=== PATIENT | female | born 2000 | race Caucasian/White ===

== ENCOUNTER → 2020-05-06 12:02 | Outpatient (BNVA) | payer OTHER, SELFPAY | PROVIDERS: PCP Pediatrics; Visit Provider Advanced Practice Midwife ==

== ENCOUNTER 2020-05-22 13:43 | Outpatient (REF) | payer OTHER, SELFPAY ==
[2020-05-23 10:16] LABS: BV Int Neg Control Negative (Negative); BV Int Pos Control Positive (Positive)
== END 2020-05-22 13:44 | disposition home or self-care (01) ==
LOC: HO.LAB 13:43
PROVIDERS: PCP Pediatrics; Visit Provider Advanced Practice Midwife
DX: Z30.432 Encounter for removal of intrauterine contraceptive device (principal); Z88.8 Allergy status to other drugs, medicaments and biological substances
CPT/HCPCS: 58301; 87480; 87510; 87660

== ENCOUNTER → 2020-12-02 11:51 | Outpatient (BNVA) | payer OTHER, SELFPAY | PROVIDERS: PCP Pediatrics; Visit Provider Advanced Practice Midwife ==

== ENCOUNTER 2021-01-07 09:33 | Outpatient (REF) | payer OTHER, SELFPAY ==
[2021-01-07 16:38] LABS: CT PCR NOT DETECTED (Not Detect.); NG PCR NOT DETECTED (Not Detect.)
== END 2021-01-07 09:34 | disposition home or self-care (01) ==
LOC: HO.LAB 09:33
PROVIDERS: PCP Pediatrics; Visit Provider Advanced Practice Midwife
DX: Z01.419 Encounter for gynecological examination (general) (routine) without abnormal findings (principal); Z20.2 Contact with and (suspected) exposure to infections with a predominantly sexual mode of transmission
CPT/HCPCS: 87491; 87591; 88142

== ENCOUNTER → 2022-03-23 08:15 | Outpatient (BNVA) | payer OTHER, SELFPAY | PROVIDERS: PCP Hospitalist; Visit Provider Nurse Practitioner Family | DX: Z13.89 Encounter for screening for other disorder (principal) ==

== ENCOUNTER 2022-04-20 08:20 | Outpatient (REF) | payer OTHER, SELFPAY ==
[2022-04-20 18:21] LABS: CT PCR NOT DETECTED (Not Detect.); NG PCR NOT DETECTED (Not Detect.)
== END 2022-04-20 08:21 | disposition home or self-care (01) ==
LOC: HO.LNP 08:20
PROVIDERS: PCP Hospitalist; Visit Provider Advanced Practice Midwife
DX: Z01.419 Encounter for gynecological examination (general) (routine) without abnormal findings (principal); Z11.3 Encounter for screening for infections with a predominantly sexual mode of transmission; R10.2 Pelvic and perineal pain
CPT/HCPCS: 0353U

== ENCOUNTER 2022-04-22 19:35 | Outpatient (REF) | payer OTHER, SELFPAY ==
--- NOTE | ~2022-04-22 | MR_ITS ---
EXAMINATION: MR CERVICAL SPINE WITHOUT CONTRAST (REDUCED) CLINICAL INFORMATION: Chiari malformation. Cine flow study. COMPARISON: Brain MRI 01/01/2022. TECHNIQUE: Multiplanar MR imaging of the cervical spine was performed using a reduced protocol specifically tailored to evaluate canal patency and CSF flow. FINDINGS: Alignment is normal. Vertebral heights are preserved. There is disc desiccation at multiple levels without substantial loss of intervertebral disc height. Grossly no evidence of canal compromise. Again there is cerebellar tonsillar ectopia with the tips of the cerebellar tonsils extending as far as 0.6 cm below the foramen magnum. No cervicomedullary compression or abnormal intramedullary signal changes. No identifiable syrinx. Cardiac gated dynamic sequences demonstrate preservation of biphasic flow of cerebrospinal fluid at the cervicomedullary junction. MR/MR cervical spine wo con IMPRESSION: Cerebellar tonsillar ectopia with the tips of the cerebellar tonsils extending as far as 0.6 cm below the foramen magnum. No cervicomedullary compression or abnormal intramedullary signal changes. No identifiable syrinx. Cardiac gated dynamic sequences demonstrate preservation of biphasic flow of cerebrospinal fluid at the cervicomedullary junction.
== END 2022-04-22 19:36 | disposition home or self-care (01) ==
LOC: HO.MRI 19:35
PROVIDERS: PCP Hospitalist; Visit Provider Neurological Surgery
DX: Q07.00 Arnold-Chiari syndrome without spina bifida or hydrocephalus (principal)
CPT/HCPCS: 72141

== ENCOUNTER 2022-05-05 15:37 | Outpatient (REF) | payer OTHER, SELFPAY ==
--- NOTE | ~2022-05-05 | US_ITS ---
EXAMINATION: US PELVIS AND TRANSVAGINAL CLINICAL INFORMATION: Pelvic pain. COMPARISON: 02/16/2018 TECHNIQUE: Ultrasound of the pelvis is performed using both transabdominal and transvaginal transducers along with Doppler. Transvaginal imaging is performed due to inadequate visualization transabdominally. FINDINGS: UTERUS: The uterus is anteverted and measures 7.2 x 2.6 x 2.8 cm. The double wall endometrial thickness is 5 mm. The uterus is smooth in contour and has normal myometrial echogenicity. No visible fibroid. ADNEXA: Both ovaries are visualized. There is normal color flow to the adnexa. There is no ovarian torsion. There is no pelvic ascites or fluid collection. Right ovary measures 3.3 x 1.7 x 2.1 for a volume of 6.2 mL which includes multiple normal follicular cysts. Left ovary measures 3.1 x 1.5 x 2.2 cm for a volume of 5.4 mL which includes multiple normal follicular cysts. US/US pelvic and transvaginal IMPRESSION: Normal exam.
== END 2022-05-05 15:38 | disposition home or self-care (01) ==
LOC: HO.US 15:37
PROVIDERS: PCP Hospitalist; Visit Provider Advanced Practice Midwife
DX: R10.2 Pelvic and perineal pain (principal)
CPT/HCPCS: 76830; 76856

== ENCOUNTER → 2022-05-25 09:54 | Outpatient (BNVA) | payer OTHER, SELFPAY | PROVIDERS: PCP Hospitalist; Visit Provider Advanced Practice Midwife | DX: Z13.89 Encounter for screening for other disorder (principal) ==

== ENCOUNTER → 2022-06-10 15:19 | Outpatient (BNVA) | payer OTHER, SELFPAY | PROVIDERS: PCP Hospitalist; Visit Provider Nurse Practitioner Family | DX: Z13.89 Encounter for screening for other disorder (principal) ==

== ENCOUNTER → 2022-07-01 13:05 | Outpatient (REF) | payer OTHER, SELFPAY | LOC: HO.SL 13:05 | PROVIDERS: PCP Hospitalist; Visit Provider Nurse Practitioner Family | DX: R06.83 Snoring (principal); G47.19 Other hypersomnia; G47.9 Sleep disorder, unspecified | CPT/HCPCS: 95806 ==

== ENCOUNTER 2022-09-10 11:06 | Outpatient (AMB) | payer OTHER, SELFPAY ==
[2022-09-10 11:09] VITALS: BP 118/90; PULSE 96; O2SAT 99; BMI 37.6
--- NOTE | 2022-09-10 11:09 | MHC.OFFVIS ---
Intake Vital Signs 09/10/22 11:09 Height 5 ft Weight 192 lb 8 oz BMI 37.6 BP 118/90 H Blood Pressure Location Lt brachial Position Sitting Pulse 96 Pulse Source Pulse Oximeter Pulse Oximetry (%) 99 Oxygen Delivery Method Room Air Intake Visit Reasons: 3 mo f/u for Migraines Intake Note: Pt presents as a 3 month f/u for migraines. I feel like everything is kind of the same. 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 Allergies amitriptyline [AMITRIPTYLINE] Adverse Reaction (Severe, Verified 09/10/22 11:13) SUICIDAL IDEATION, suicidal Medication List - Last Reconciled 09/10/22 by FEDE Russell aspirin 325 mg PO DAILY bupropion HCl 450 mg PO DAILY etonogestrel (Nexplanon) subdermal lamotrigine 200 mg PO DAILY magnesium 250 mg PO DAILY riboflavin (vitamin B2) 400 mg (4 x 100 mg) PO DAILY 30 days sumatriptan succinate 50 - 100 mg orally at onset of headache, may repeat in 2 hrs PRN; max 2 tabs per day or 4 tabs/week (may take with Ibuprofen) 30 days HPI HPI Comments History of Present Illness Details 21-yr-old female presents for f/u visit. Pt denies any significant interval medical changes. Pt reports that she continues to have daily headache, but not as many severe headaches. She has stopped Propranolol- nightmares have resolved, her weight is down as well. Her HST did not show evidence for sleep apnea- showed AHI < 1/hr and O2 lino 90%. 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 [employer] Sexual orientation: Straight/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 Gender identity: Female Cognitive needs: No Hearing needs: No Vision needs: No Female Reproductive History Menstrual Age of Menarche: 9 Review of Systems Const All systems reviewed & are unremarkable except as noted in HPI and below Physical Exam Vital Signs: Last Vital Signs Pulse 96 09/10/22 11:09 BP 118/90 H 09/10/22 11:09 Pulse Ox 99 09/10/22 11:09 Oxygen Delivery Method Room Air 09/10/22 11:09 BMI result Body Mass Index 37.6 Const General: cooperative and no acute distress Orientation/consciousness: patient oriented x3 HEENT Head: Yes normocephalic Resp Effort & Inspection: normal respiratory effort and able to speak in complete sentences Neuro General: patient oriented x3, gait normal and CN's II-XI intact bilaterally Cognition (Neuro): normal cognition Motor exam (neuro): 5/5 motor strength present throughout Psych Appearance: grossly normal Mental Status: mental status grossly normal Speech and movement: Normal speech and movement present Affect: normal affect Attitude: cooperative Thought process: Normal thought process present Thought content: Normal thought content present Insight: Good insight present (Psych) Judgement: Good judgement present (Psych) Assessment & Plan Assessment & Plan (1) Migraine without aura: Code(s): G43.009 - Migraine without aura, not intractable, without status migrainosus (2) Excessive daytime sleepiness: Code(s): G47.19 - Other hypersomnia (3) Cerebellar tonsillar ectopia: Code(s): 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 Plan HST no evidence of sleep apnea- if sleep worsens consider in-lab PSG. ? For acute headache treatment: Sumatriptan 50-100mg prn. May take w/ OTC Ibuprofen or Naproxen. ? For headache prevention medication: Continue Riboflavin 400mg qam Trial Aimovig 140mg sc q month- pt will want injection training when available. Previous preventive migraine trials: Amitriptyline- caused SI. Topiramate- ineffective. Propranolol- nightmares and weight gain. Magnesium. Future considerations: Resuming Botox. ?Follow-up in 3 months or sooner w/ worsening s/s. Medications: New erenumab-aooe (Aimovig Autoinjector) 140 mg subcut ONCE 1 mL 6RF 30 days Coding Level of Care Code Est Pt Level 4 (14852) Diagnoses Migraine without aura G43.009 Excessive daytime sleepiness G47.19 Cerebellar tonsillar ectopia Q04.8
== END 2022-09-10 11:46 | disposition home or self-care (01) ==
PROVIDERS: Visit Provider Nurse Practitioner Family
DX: G43.009 Migraine without aura, not intractable, without status migrainosus (principal); G47.19 Other hypersomnia; Q04.8 Other specified congenital malformations of brain
CPT/HCPCS: 99214

== ENCOUNTER → 2022-09-10 11:06 | Outpatient (BNVA) | payer OTHER, SELFPAY | PROVIDERS: Visit Provider Nurse Practitioner Family ==

== ENCOUNTER 2022-12-24 11:04 | Outpatient (AMB) | payer OTHER, SELFPAY ==
--- NOTE | 2022-12-24 11:04 | MHC.OFFVIS ---
Intake Vital Signs 12/24/22 11:05 Height 5 ft Weight 180 lb 8 oz BMI 35.2 BP 108/82 Blood Pressure Location Lt brachial Position Sitting Pulse 93 Pulse Source Pulse Oximeter Pulse Oximetry (%) 99 Oxygen Delivery Method Room Air Intake Visit Reasons: 3m follow up Migraines-Confirmed Intake Note: Patient present today for 3 month follow to Migraines. No change since last visit. 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 Accompanied by: Self / Same As Patient Allergies amitriptyline [AMITRIPTYLINE] Adverse Reaction (Severe, Verified 12/24/22 11:10) SUICIDAL IDEATION, suicidal Medication List - Last Reconciled 12/24/22 by FEDE Russell aspirin 325 mg PO DAILY bupropion HCl 450 mg PO DAILY erenumab-aooe (Aimovig Autoinjector) 140 mg subcut ONCE 30 days etonogestrel (Nexplanon) subdermal lamotrigine 150 mg PO DAILY magnesium 250 mg PO DAILY riboflavin (vitamin B2) 400 mg (4 x 100 mg) PO DAILY 30 days sumatriptan succinate 50 - 100 mg orally at onset of headache, may repeat in 2 hrs PRN; max 2 tabs per day or 4 tabs/week (may take with Ibuprofen) 30 days HPI HPI Comments History of Present Illness Details 22-yr-old female presents for f/u visit. Pt denies any significant interval medical changes. Pt states she continues to have a near daily headache/migraine. She continues to have visual snow episodes- not affected by weaning of Lamotrigine (weaning off as her osych team does not feel she actually has bipolar d/o). She often has neck tightness a/w worsening migraine Sumatriptan is effective. She never started or picked up Aimovig as copay was > $100/month. 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 [employer] Sexual orientation: Straight/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 Gender identity: Female Cognitive needs: No Hearing needs: No Vision needs: No Female Reproductive History Menstrual Age of Menarche: 9 Review of Systems Const All systems reviewed & are unremarkable except as noted in HPI and below Physical Exam Vital Signs: Last Vital Signs Pulse 93 12/24/22 11:05 BP 108/82 12/24/22 11:05 Pulse Ox 99 12/24/22 11:05 Oxygen Delivery Method Room Air 12/24/22 11:05 BMI result Body Mass Index 35.2 Const General: cooperative and no acute distress Orientation/consciousness: patient oriented x3 HEENT Head: Yes normocephalic Resp Effort & Inspection: normal respiratory effort and able to speak in complete sentences Neuro General: patient oriented x3, gait normal and CN's II-XI intact bilaterally Cognition (Neuro): normal cognition Motor exam (neuro): 5/5 motor strength present throughout Psych Appearance: grossly normal Mental Status: mental status grossly normal Speech and movement: Normal speech and movement present Affect: normal affect Attitude: cooperative Thought process: Normal thought process present Thought content: Normal thought content present Insight: Good insight present (Psych) Judgement: Good judgement present (Psych) Assessment & Plan Assessment & Plan (1) Migraine without aura: Code(s): G43.009 - Migraine without aura, not intractable, without status migrainosus (2) Cervicalgia: Code(s): M54.2 - Cervicalgia Plan HST no evidence of sleep apnea- if sleep worsens consider in-lab PSG. Will refer pt to PT for cervicalgia/migraine- order slip given to pt. ? For acute headache treatment: Sumatriptan 50-100mg prn. May take w/ OTC Ibuprofen or Naproxen. ? For headache prevention medication: Continue Riboflavin 400mg qam Again trial Aimovig 140mg sc q month- info given on co-pay assistance through Aimovig- pt will want injection training when available. Previous preventive migraine trials: Amitriptyline- caused SI. Topiramate- ineffective. Propranolol- nightmares and weight gain. Magnesium. Future considerations: Resuming Botox. ? ?Follow-up in 3 months or sooner w/ worsening s/s. Orders: Orders PT Evaluation and Treatment Today G43.009 - Migraine without aura, not intractable, without status migrainosus, M54.2 - Cervicalgia Medications: Refilled erenumab-aooe (Aimovig Autoinjector) 140 mg subcut ONCE 30 days 1 mL 6RF Coding Level of Care Code Est Pt Level 4 (33295) Diagnoses Migraine without aura G43.009 Cervicalgia M54.2
[2022-12-24 11:05] VITALS: BP 108/82; PULSE 93; O2SAT 99; BMI 35.2
== END 2022-12-24 11:33 | disposition home or self-care (01) ==
PROVIDERS: PCP Hospitalist; Visit Provider Nurse Practitioner Family
DX: G43.009 Migraine without aura, not intractable, without status migrainosus (principal); M54.2 Cervicalgia
CPT/HCPCS: 99214

== ENCOUNTER → 2022-12-24 11:04 | Outpatient (BNVA) | payer OTHER, SELFPAY | PROVIDERS: PCP Hospitalist; Visit Provider Nurse Practitioner Family ==

== ENCOUNTER 2023-02-02 10:01 | Outpatient (REF) | payer OTHER, SELFPAY ==
[2023-02-02 17:14] LABS: CT PCR NOT DETECTED (Not Detect.); NG PCR NOT DETECTED (Not Detect.)
[2023-02-03 13:08] LABS: BV Int Neg Control Negative (Negative); BV Int Pos Control Positive (Positive)
== END 2023-02-02 10:02 | disposition home or self-care (01) ==
LOC: HO.LAB 10:01
PROVIDERS: PCP Hospitalist; Visit Provider Advanced Practice Midwife
DX: Z20.2 Contact with and (suspected) exposure to infections with a predominantly sexual mode of transmission (principal); B37.31 Acute candidiasis of vulva and vagina; Z97.5 Presence of (intrauterine) contraceptive device
CPT/HCPCS: 0353U; 87480; 87510; 87660

== ENCOUNTER 2023-02-02 10:01 | Outpatient (AMB) | payer OTHER, SELFPAY ==
[2023-02-02 10:05] VITALS: BP 110/68; BMI 36.7
--- NOTE | 2023-02-02 10:05 | A.OFFVIS_ITS ---
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 Allergies amitriptyline [AMITRIPTYLINE] Adverse Reaction (Severe, Verified 02/02/23 10:07) SUICIDAL IDEATION, suicidal Medication List - Last Reconciled 02/02/23 by Donna Mg CNM aspirin 325 mg PO DAILY bupropion HCl 450 mg PO DAILY erenumab-aooe (Aimovig Autoinjector) 140 mg subcut ONCE 30 days etonogestrel (Nexplanon) subdermal lamotrigine 150 mg PO DAILY magnesium 250 mg PO DAILY riboflavin (vitamin B2) 400 mg (4 x 100 mg) PO DAILY 30 days sumatriptan succinate 50 - 100 mg orally at onset of headache, may repeat in 2 hrs PRN; max 2 tabs per day or 4 tabs/week (may take with Ibuprofen) 30 days Is last menstrual period known: Yes Last menstrual period: 01/06/23 HPI itchy HPI Details Patient is here because she started having vaginal itching and burning Tuesday she thought it might be a yeast infection and then it got worse and so she put ice on her vagina and she also went to [facility] and got Monistat 1 which she used last night she still burning. She also would like to be checked for STDs because she did have sex and it started soon after that. She says she used to get yeast infections a lot in the past but recently was doing better she is not diabetic she is on meds for her psychological well-being and migraines as well as the Nexplanon and she typically gets a period months a month they can be different though her last period was January 03. 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 [employer] Sexual orientation: Straight/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 Gender identity: Female Cognitive needs: No Hearing needs: No Vision needs: No Female Reproductive History Menstrual Age of Menarche: 9 Duration of menses: 3-5 days Date of last menstrual period: 01/06/23 control method: implanted Physical Exam Vital Signs: Last Vital Signs BP 110/68 02/02/23 10:05 BMI result Body Mass Index 36.7 External Female Exam: normal external appearance and erythema Speculum Exam - Vagina: normal appearance of the vagina and other (Vagina is coated with Monistat cream.) Speculum Exam - Cervix: normal appearance of the cervix Assessment & Plan Assessment & Plan (1) Yeast infection involving the vagina and surrounding area: Code(s): B37.31 - Acute candidiasis of vulva and vagina (2) Encounter for screening examination for sexually transmitted disease: Code(s): Z11.3 - Encounter for screening for infections with a predominantly sexual mode of transmission (3) Nexplanon in place: Code(s): Z97.5 - Presence of (intrauterine) contraceptive device Plan ---I reviewed her symptoms we reviewed what she may have done alleviate symptoms. I reviewed contributing factors to yeast infection including clothing that may be a little tight or does not permit air to pass to the vulva well, including non cotton underwear, nylon and polyester type workout clothes and yoga pants, use of panty liners pads for periods etc. My recommendations include use of the medication that we decided upon, allowing air to her vulva as much as possible including wearing cotton underwear and possibly no underwear at night when possible. Any other contributing factors were explored. I encouraged her not to scratch. I reviewed what to do when she feels symptoms first starting, (re-double her efforts at allowing air to the area.) Discussed the advantages of Monistat 7 versus Monistat 1 and 3 she can use it for longer periods of time and it is not as strong. In her case I will prescribe Diflucan that she can use and repeat the dose in 3 days if she still not feeling better with 1 refill if she needed it in the coming year. Discussed all the ways of preventing yeast also discussed the possibility of any chemical irritation from any kind of cologne or anything her partner may have had on as a possibility as well offered other STI testing beyond the chlamydia trich and other testing done today but she declined those. Orders: Orders CT NG by PCR Today Z01.419 - Encounter for gynecological examination (general) (routine) without abnormal findings Bacterial Vaginosis Panel Today Z20.2 - Contact with and (suspected) exposure to infections with a predominantly sexual mode of transmission Medications: New fluconazole may repeat second dose 72 hrs after first dose if symptoms persist 150 mg PO Q3D 2 doses 2 tabs 1RF Coding Level of Care Code Est Pt Level 3 (39205) Diagnoses Yeast infection involving the vagina and surrounding area B37.31 Encounter for screening examination for sexually transmitted disease Z11.[address] Z97.5
== END 2023-02-02 11:12 | disposition home or self-care (01) ==
PROVIDERS: PCP Hospitalist; Visit Provider Advanced Practice Midwife
DX: B37.31 Acute candidiasis of vulva and vagina (principal); Z11.3 Encounter for screening for infections with a predominantly sexual mode of transmission; Z97.5 Presence of (intrauterine) contraceptive device
CPT/HCPCS: 99213

== ENCOUNTER 2023-03-02 08:24 | Outpatient (AMB) | payer OTHER, SELFPAY ==
--- NOTE | 2023-03-02 09:27 | MHC.OFFWIV ---
Intake Vital Signs 03/02/23 09:32 Height 5 ft Weight 188 lb 2 oz BMI 36.7 BP 124/78 Blood Pressure Location Rt brachial Position Sitting Pulse 115 H Pulse Source Pulse Oximeter Temp 101.5 F H Temp Source Temporal Artery Scan Pulse Oximetry (%) 97 Oxygen Delivery Method Room Air Intake Visit Reasons: EP, vomiting, diarrhea ([phone]) Intake Note: Pt is here c/o fever, vomiting and diarrhea since yesterday. Pt requesting work note for three days. Patient Tobacco Use Status: Never used Tobacco Allergies amitriptyline [AMITRIPTYLINE] Adverse Reaction (Severe, Verified 03/02/23 09:51) SUICIDAL IDEATION, suicidal Medication List - Last Reconciled 03/02/23 by True Wesley MD aspirin 325 mg PO DAILY bupropion HCl 450 mg PO DAILY erenumab-aooe (Aimovig Autoinjector) 140 mg subcut ONCE 30 days etonogestrel (Nexplanon) subdermal fluconazole 150 mg PO Q3D 2 doses lamotrigine 150 mg PO DAILY magnesium 250 mg PO DAILY riboflavin (vitamin B2) 400 mg (4 x 100 mg) PO DAILY 30 days sumatriptan succinate 50 - 100 mg orally at onset of headache, may repeat in 2 hrs PRN; max 2 tabs per day or 4 tabs/week (may take with Ibuprofen) 30 days Do you need a note to return to daycare/school/sports/work: Yes HPI EP, vomiting, diarrhea ([phone]) HPI Details Patient presents for a sick visit. Reporting symptoms of sinus congestion, sore throat and difficulty swallowing. Low-grade fever. No family member is sick. No recent travel. Patient reports symptoms of malaise and fatigue. 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 [employer] Sexual orientation: Straight/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 Gender identity: Female Cognitive needs: No Hearing needs: No Vision needs: No Female Reproductive History Menstrual Age of Menarche: 9 Physical Exam Vital Signs: Last Vital Signs Temp 101.5 F H 03/02/23 09:32 Pulse 115 H 03/02/23 09:32 BP 124/78 03/02/23 09:32 Pulse Ox 97 03/02/23 09:32 Oxygen Delivery Method Room Air 03/02/23 09:32 BMI result Body Mass Index 36.7 Const General: cooperative and healthy appearing Nutritional Appearance: well nourished Orientation/consciousness: patient oriented x3 Limitations: no limitations HEENT Head: Yes normal to inspection Eyes General: appearance normal, both eyes and all related structures Neck Neck: Yes normal visual inspection Chest Chest palpation & inspection: normal palpation of entire chest wall Resp Effort & Inspection: normal respiratory effort Neuro General: patient oriented x3 Assessment & Plan Assessment & Plan (1) Upper respiratory tract infection: Code(s): J06.9 - Acute upper respiratory infection, unspecified Plan: . Increase fluid intake. Tylenol for aches and pains. If symptoms worsen, follow-up here for a recheck. No antibiotics needed. COVID testing ordered. Will call with results. Coding Level of Care Code Est Pt Level 3 (92808) Diagnoses Upper respiratory tract infection J06.9
[2023-03-02 09:32] VITALS: BP 124/78; PULSE 115; TEMP 38.6; O2SAT 97; BMI 36.7
== END 2023-03-02 10:01 | disposition home or self-care (01) ==
LOC: HO.HMGWI 08:24
PROVIDERS: PCP Hospitalist
DX: J06.9 Acute upper respiratory infection, unspecified (principal)
CPT/HCPCS: 99213

== ENCOUNTER 2023-03-02 13:27 | Outpatient (REF) | payer OTHER, SELFPAY | END 2023-03-02 13:28 | disposition home or self-care (01) | LOC: HO.HMGCLNP 13:27 | PROVIDERS: Visit Provider Internal Medicine | DX: Z11.52 Encounter for screening for COVID-19 (principal); Z20.822 Contact with and (suspected) exposure to COVID-19; R43.9 Unspecified disturbances of smell and taste | CPT/HCPCS: 0241U ==

== ENCOUNTER 2023-04-26 08:56 | Outpatient (REF) | payer OTHER, SELFPAY ==
[2023-04-26 17:56] LABS: CT PCR NOT DETECTED (Not Detect.); NG PCR NOT DETECTED (Not Detect.)
== END 2023-04-26 08:57 | disposition home or self-care (01) ==
LOC: HO.LNP 08:56
PROVIDERS: PCP Nurse Practitioner Family; Visit Provider Advanced Practice Midwife
DX: Z01.419 Encounter for gynecological examination (general) (routine) without abnormal findings (principal); Z20.2 Contact with and (suspected) exposure to infections with a predominantly sexual mode of transmission
CPT/HCPCS: 0353U; 88142

== ENCOUNTER 2023-04-26 08:56 | Outpatient (AMB) | payer OTHER, SELFPAY ==
[2023-04-26 09:01] VITALS: BP 112/62; BMI 36.3
--- NOTE | 2023-04-26 09:01 | MHC.OFFVIS ---
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 Doing well with no concerns. She tries to eat healthy and stays active with exercise. Nexplanon, inserted 12/2020 at [facility]. Has monthly cycles. Currently is sexually active. She denies vaginal itching and irritation. STI screening offered; she accepts. Declines bloodwork. Denies family history of breast, ovarian or colon cancer. Last pap smear 2020, negative. [facility] Medical History (Updated 04/26/23 @ 09:23 by Mamta Pace CNM) Visual snow syndrome Cerebellar tonsillar ectopia Hx of migraine headaches History of depression Family History Maternal Grandmother History of breast cancer BRCA negative Mother Depression Father Diabetes Social History (Updated 04/26/23 @ 09:25 by Mamta Pace CNM) Housing: Apartment Alcohol intake: current Alcohol intake frequency: a few times a month Patient Tobacco Use Status: Never used Tobacco e-Cigarette/Vaping Use: Never Used Substance Use Type: Marijuana service: No Current occupational status: employed Current occupation: [employer] [place] [employer] [place] Sexual orientation: Straight/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 Gender identity: Female Cognitive needs: No Hearing needs: No Vision needs: No Female Reproductive History Menstrual Age of Menarche: 9 Duration of menses: 3-5 days Date of last menstrual period: 04/07/23 control method: implanted (late 2020 at [facility]) Total pregnancies: 0 Date of last pap smear: 01/07/21 (neg) History of abnormal pap smear: No History of STI: No Review of Systems Const All systems reviewed & are unremarkable except as noted in HPI and below Reports as per HPI Eyes Reports no additional complaints ENT Reports no additional complaints Card Reports no additional complaints Resp Reports no additional complaints GI Reports as per HPI and Reports no additional complaints Reports as per HPI Musc Reports no additional complaints Skin/Breast Reports as per HPI Neuro Reports no additional complaints Psych Reports no additional complaints Endo Reports no additional complaints Albino/Lymph Reports no additional complaints Aller/Immun Reports no additional complaints Physical Exam Vital Signs: Last Vital Signs BP 112/62 04/26/23 09:01 BMI result Body Mass Index 36.3 Const General: cooperative, healthy appearing, no acute distress, well developed and alert Orientation/consciousness: patient oriented x3 HEENT Head: Yes normal to inspection Eyes General: appearance normal, both eyes and all related structures Neck Neck: Yes normal visual inspection Thyroid: Thyroid normal Chest Chest palpation & inspection: normal inspection of the chest and other (no puckering, dimpling, peau de orange, retraction, discharge, masses) Breast/axilla inspection: normal inspection of the breasts Breast/axilla palpation: normal palpation of the breasts Resp Effort & Inspection: normal respiratory effort GI Inspection: Yes normal to inspection Palpation (GI): Soft to palpation Rectal Exam - Female: deferred General: Yes bladder normal to palpation External Female Exam: normal external appearance and normal appearance of the urethra Speculum Exam - Vagina: normal appearance of the vagina, normal palpation and normal vaginal discharge Speculum Exam - Cervix: normal appearance of the cervix and normal palpation Bimanual exam- vagina & uterus: normal bimanual exam, normal palpation, uterine size normal, bladder normal to palpation, normal palpation and non-tender Bimanual Exam- Adnexa, other: no masses Skin General skin exam: no rashes or lesions noted Rashes: no rashes Neuro General: patient oriented x3 Cognition (Neuro): normal cognition Extrem General: Yes normal to inspection Psych Attitude: cooperative Thought process: Normal thought process present Assessment & Plan Assessment & Plan (1) Encounter for well woman exam with routine gynecological exam: Code(s): Z01.419 - Encounter for gynecological examination (general) (routine) without abnormal findings Plan Discussed: Current recommendations for pap smears per ASCCP guidelines. Breast awareness and periodic breast exams. Maintain a healthy lifestyle including a well balanced diet and routine exercise. Use condoms for STI and prevention. Patient verbalizes understanding and agrees to the plan of care. She was given opportunity to ask questions and all questions were answered to the best of my ability. 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 This note is constructed using voice recognition software. While every effort has been made to ensure accuracy, gas station supervisor errors may have been included. Coding Level of Care Code Est Pt Prev Care 18-39y(64208) Diagnoses Encounter for well woman exam with routine gynecological exam Z01.419
== END 2023-04-26 10:13 | disposition home or self-care (01) ==
LOC: HO.HWS 08:56
PROVIDERS: PCP Nurse Practitioner Family; Visit Provider Advanced Practice Midwife
DX: Z01.419 Encounter for gynecological examination (general) (routine) without abnormal findings (principal)
CPT/HCPCS: 99395

== ENCOUNTER 2023-04-27 07:53 | Outpatient (AMB) | payer OTHER, SELFPAY ==
--- NOTE | 2023-04-27 07:55 | MHC.PC.OV ---
Vital Signs 04/27/23 07:56 Height 5 ft Weight 188 lb 2 oz BMI 36.7 BP 104/76 Blood Pressure Location Rt brachial Position Sitting Respiration 13 Pulse 98 Pulse Source Pulse Oximeter Temp 97.4 F Temp Source Temporal Artery Scan Pulse Oximetry (%) 98 Oxygen Delivery Method Room Air Intake Visit Reasons: Trans. 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: No Accompanied by: Self / Same As Patient Allergies amitriptyline [AMITRIPTYLINE] Adverse Reaction (Severe, Verified 04/27/23 08:11) SUICIDAL IDEATION, suicidal Medication List - Last Reconciled 04/27/23 by Yolande Silva, COMPUTERIZED MILL MILL RECORDER- aspirin 325 mg PO DAILY bupropion HCl 450 mg PO DAILY erenumab-aooe (Aimovig Autoinjector) 140 mg subcut ONCE 30 days etonogestrel (Nexplanon) subdermal lamotrigine 150 mg PO DAILY magnesium 250 mg PO DAILY riboflavin (vitamin B2) 400 mg (4 x 100 mg) PO DAILY 30 days sumatriptan succinate 50 - 100 mg orally at onset of headache, may repeat in 2 hrs PRN; max 2 tabs per day or 4 tabs/week (may take with Ibuprofen) 30 days Tobacco use date assessed: 04/27/23 Dental Screening Dental Screen Date: 04/27/23 Did you have a dental visit in the last 12 months?: Yes Did you have a dental problem in the last 6 months where you did not have access to dental care?: No Was dental information given to patient?: Patient has dentist HPI HPI Comments History of Present Illness Details 22-year-old female with GERD, MDD, migraine headaches with visual aura, cerebellar tonsillar ectopia, obesity 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 No longer ff'd. Neurosurgeon Dr Vergara consult x 1. No surgery recommendation. Do not get spinal tap/LP. Psychiatry and counselor Derm Significant family history Maternal aunt with brain cancer, 30's Maternal grandmother with breast cancer BRCA negative Mom - MDD Dad DM 2 Health maintenance Pap 04/26/2023 Home sleep study negative 2022 Vaccine UTD to include Flu Surgeries - None Here today to est care and for a CPE Overall feels well Skin - reports areas on bilat legs, present for some time. 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 Sleep study in the past, negative. Has not had any recent labs. [facility] Medical History Difficulty sleeping Visual snow syndrome Cerebellar tonsillar ectopia Hx of migraine headaches History of depression Family History Maternal Grandmother History of breast cancer BRCA negative Mother Depression Father Diabetes Social History Housing: Apartment Alcohol intake: current Alcohol intake frequency: a few times a month Patient Tobacco Use Status: Never used Tobacco e-Cigarette/Vaping Use: Never Used Substance Use Type: Marijuana service: No Current occupational status: employed Current occupation: [employer] Sexual orientation: Straight/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 Gender identity: Female Cognitive needs: No Hearing needs: No Vision needs: No Female Reproductive History Menstrual Age of Menarche: 9 Questionnaire PHQ-9 Over the last 2 weeks, how often have you been bothered by any of the following problems? 1. Little interest or pleasure in doing things: not at all 2. Feeling down, depressed, or hopeless: not at all 3. Trouble falling or staying asleep, or sleeping too much: several days 4. Feeling tired or having little energy: several days 5. Poor appetite or overeating: not at all 6. Feeling bad about yourself - or that you are a failure or have let yourself or your family down: not at all 7. Trouble concentrating on things, such as reading the newspaper or watching television: several days 8. Moving or speaking so slowly that other people could have noticed. Or the opposite - being so fidgety or restless that you have been moving around a lot more than usual: not at all 9. Thoughts that you would be better off or of hurting yourself in some way: not at all Total score: 3 Depression Screening Interpretation: Negative Depression Screening Done: Yes 20184 - PHQ-9 Billing: Yes Source: Developed by Drs. Donal Rodriguez, Ceci Harrison, Phillip Schofield and colleagues, with an educational kadi from [employer]. Thrive Questionnaire Date Thrive assessed: 04/27/23 I am a: Patient What is your living situation today?: I have a steady place to live Within the past 12 months, did the food you bought not last and you didn't have the money to get more?: Never true Within the past 12 months, did you worry whether your food would run out before you got money to buy more?: Never true Do you have trouble paying for medicines?: No Do you have trouble getting transportation to medical appointments?: No Do you have trouble paying your heating and electricity bill?: No Do you have trouble taking care of your child, family member or friend?: No Do you have trouble with day-to-day activities such as bathing, preparing meals, shopping, managing finances, etc.?: No Are you currently unemployed and looking for a job?: No Are you interested in more education?: No Please select the resources that you would like help with: None Currently or been in a relationship where the following occur: no concerns reported THRIVE Score: 0 AUDIT C Alcohol Use Questionnaire (AUDIT-C) 1. How often do you have a drink containing alcohol?: Monthly or less 2. How many drinks containing alcohol do you have on a typical day when you are drinking?: 1 or 2 3. How often do you have six or more drinks on one occasion?: Never Total Score: 1 Score Reviewed/Action Taken: Yes TABBY-7 AMB Questionnaire TABBY-7 Date TABBY - 7 assessed: 04/27/23 Feeling nervous, anxious, or on edge: 3 = Nearly every day Not being able to stop or control worryin = Several days Worrying too much about different things: 1 = Several days Trouble relaxin = Not at all Being so restless that it is hard to sit still: 0 = Not at all Becoming easily annoyed or irritable: 1 = Several days Feeling afraid as if something awful might happen: 1 = Several days Total TABBY-7 score (0-4 normal; 5-9 mild; 10-14 moderate; 15-21 severe): 7 Source: Developed by Drs. Donal Rodriguez, Ceci Harrison, Phillip Schofield and colleagues, with an educational kadi from [employer]. TABBY-7 Assessment Billing TABBY-7 Assessment Tool: TABBY-7 Assessment [id number] Review of Systems Const Details: Constitutional: Denies fever. Eye: Denies eye pain. ENMT: Denies sore throat and nasal congestion. Respiratory: Denies shortness of breath and cough. Gastrointestinal: Denies nausea, vomiting or abdominal pain. Cardiovascular: Denies chest pain and syncope. Genitourinary: Denies dysuria. Musculoskeletal: Denies back pain and extremity pain. Neurologic: Denies confusion, and weakness. Psychiatric: Denies suicidal thoughts and substance abuse. Allergy/ Immunologic: Denies impaired immunity. Physical exam (Primary Care) BMI Assessment/Plan discussion: High BMI High, discussed plan: lifestyle Tobacco/Smoking Status: Tobacco use Status Tobacco use date assessed 05/06/22 03/02/23 08:23 Patient Tobacco Use Status Never used Tobacco 04/26/23 09:25 e-Cigarette/Vaping Use Never Used 04/26/23 09:25 Depression Screening Interpretation: Negative Thrive Assessment: Date of Thrive Assessment Date Thrive assessed 05/06/22 03/02/23 08:23 Currently or been in a relationship where the following occur: no concerns reported Const Other: General: Well developed, well nourished, in no acute distress. Appears stated age. Head: Normocephalic, atraumatic. Eyes: Pupils are equal, round and reactive to light and accommodation. Conjunctivae are clear. Vision grossly normal. Ears: TMs clear AU, EACS WNL Nose: Patent, without discharge. Mouth: There are no ulcers or lesions noted. No inflammation, no post nasal drip, no plaques nor exudates. Neck: Supple, no adenopathy or thyromegaly. Lungs: Clear to auscultation bilaterally. No rales, rhonchi or wheeze noted. Good air flow in all flores. Heart: Regular rate and rhythm. No murmurs, click, rubs or gallops are noted. Abdomen: Bowel sounds present in all quadrants. The abdomen is soft, nontender, with no masses or organomegaly noted. No hernias are noted. Musculoskeletal: Joints are nontender, without swelling, redness, or effusions. Range of motion is observed to be normal. Pulses: Peripheral pulses are equal and palpable bilaterally. Extremities: No clubbing, cyanosis nor edema is noted. Neurologic: Gait and station normal. Cranial Nerves 2-12 intact. Motor strength grossly symmetrical and intact. No sensory loss. Balance normal. Skin: No rashes, ulcers noted. Turgor is good. Skin color is good. Hair and nails are without abnormalities. Right upper thigh lateral aspect and left upper thigh lateral aspect are 2 flesh colored/pink papules that appear to be viral Psych: Normal eye contact, affect and mood appropriate, and normal interactions. Patient is alert and appropriate to context. Assessment and Plan Assessment & Plan (1) Normal physical exam: Code(s): Z00.00 - Encounter for general adult medical examination without abnormal findings (2) MDD (major depressive disorder), recurrent episode: Comment: Managed by outside prescriber and counselor Code(s): F33.9 - Major depressive disorder, recurrent, unspecified Qualifiers: Major depression episode severity: mild Qualified Code(s): F33.0 - Major depressive disorder, recurrent, mild (3) TABBY (generalized anxiety disorder): Comment: Managed by outside prescriber and counselor Code(s): F41.1 - Generalized anxiety disorder (4) Migraine headache with aura: Comment: Managed by [facility]. On both preventative and rescue medications. Code(s): G43.109 - Migraine with aura, not intractable, without status migrainosus Qualifiers: Intractability: not intractable Status migrainosus presence: without status migrainosus Qualified Code(s): G43.109 - Migraine with aura, not intractable, without status migrainosus (5) Family history of breast cancer: Comment: maternal grandmother BRCA negative Code(s): Z80.3 - Family history of malignant neoplasm of breast (6) Severe obesity with body mass index (BMI) of 36.0 to 36.9 with serious comorbidity: Comment: Lifestyle modifications encouraged Code(s): E66.01 - Morbid (severe) obesity due to excess calories; Z68.36 - Body mass index [BMI] 36.0-36.9, adult (7) Laboratory exam ordered as part of routine general medical examination: Code(s): Z00.00 - Encounter for general adult medical examination without abnormal findings (8) Localized viral skin infection: Code(s): L08.9 - Local infection of the skin and subcutaneous tissue, unspecified; B97.89 - Other viral agents as the cause of diseases classified elsewhere Plan: Appear to be viral lesions on bilat legs. We will refer to [facility] dermatology for further evaluation and treatment Orders: Orders Comprehensive Met. 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, Z00.00 - Encounter for general adult medical examination without abnormal findings, Z68.36 - Body mass index [BMI] 36.0-36.9, adult TSH reflex Free T4 Today E66.01 - Morbid (severe) obesity due to excess calories, F33.9 - Major depressive disorder, recurrent, unspecified, F41.1 - Generalized anxiety disorder, G43.109 - Migraine with aura, not intractable, without status migrainosus, 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, Z00.00 - Encounter for general adult medical examination without abnormal findings, Z68.36 - Body mass index [BMI] 36.0-36.9, adult Vitamin D 1,25 dihydroxy Today E66.01 - Morbid (severe) obesity due to excess calories, F33.9 - Major depressive disorder, recurrent, unspecified, F41.1 - Generalized anxiety disorder, G43.109 - Migraine with aura, not intractable, without status migrainosus, 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, Z00.00 - Encounter for general adult medical examination without abnormal findings, Z68.36 - Body mass index [BMI] 36.0-36.9, adult LDL Cholesterol Direct Today E66.01 - Morbid (severe) obesity due to excess calories, F33.9 - Major depressive disorder, recurrent, unspecified, F41.1 - Generalized anxiety disorder, G43.109 - Migraine with aura, not intractable, without status migrainosus, 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, Z00.00 - Encounter for general adult medical examination without abnormal findings, Z68.36 - Body mass index [BMI] 36.0-36.9, adult Complete Blood Count no Diff Today E66.01 - Morbid (severe) obesity due to excess calories, F33.9 - Major depressive disorder, recurrent, unspecified, F41.1 - Generalized anxiety disorder, G43.109 - Migraine with aura, not intractable, without status migrainosus, 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, Z00.00 - Encounter for general adult medical examination without abnormal findings, Z68.36 - Body mass index [BMI] 36.0-36.9, adult IRON PROFILE Today E66.01 - Morbid (severe) obesity due to excess calories, F33.9 - Major depressive disorder, recurrent, unspecified, F41.1 - Generalized anxiety disorder, G43.109 - Migraine with aura, not intractable, without status migrainosus, 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, Z00.00 - Encounter for general adult medical examination without abnormal findings, Z68.36 - Body mass index [BMI] 36.0-36.9, adult Vitamin B12 and Folate Today E66.01 - Morbid (severe) obesity due to excess calories, F33.9 - Major depressive disorder, recurrent, unspecified, F41.1 - Generalized anxiety disorder, G43.109 - Migraine with aura, not intractable, without status migrainosus, 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 The purpose of these visits is to: Screen for medical issues Assess your risk for future medical problems Encourage a healthy lifestyle Update vaccinations and other preventive care services Help you get to know your provider in case of an illness Information Even if you feel fine, you should still see your provider for regular checkups. These visits can help you avoid problems in the future. For example, the only way to find out if you have high blood pressure is to have it checked regularly. High blood sugar and high cholesterol levels also may not have any symptoms in the early stages. A simple blood test can check for these conditions. There are specific times when you should see your provider or receive specific health screenings. The [place] Preventive Services Task Force publishes a list of recommended screenings. Below are screening guidelines for women ages 18 to 39. BLOOD PRESSURE SCREENING Your blood pressure should be checked at least once every 3 to 5 years if: Your blood pressure is in the normal range (top number less than 120 mm Hg and bottom number less than 80 mm Hg) You don't have risk factors for high blood pressure Ask your provider if you need your blood pressure checked more often if: The top number is 120 to 129 mm Hg or the bottom number is 70 to 79 mm Hg You have diabetes, heart disease, kidney problems, are overweight, or have certain other health conditions You have a first-degree relative with high blood pressure You are Black You had high blood pressure during a If the top number is 130 mm Hg or greater or the bottom number is 80 mm Hg or greater, this is considered stage 1 hypertension. Schedule an appointment with your provider to learn how you can reduce your blood pressure. Watch for blood pressure screenings in your area. Ask your provider if you can stop in to have your blood pressure checked. BREAST CANCER SCREENING Experts do not agree about the benefits of breast self-exams in finding breast cancer or saving lives. Talk to your provider about what is best for you. A screening mammogram is not recommended for most women under age 40. Your provider may discuss and recommend mammograms, MRI scans, or ultrasounds if you have an increased risk for breast cancer, such as: A mother or sister who had breast cancer at a young age (most often starting screening earlier than the age the close relative was diagnosed) You carry a high-risk genetic marker CERVICAL CANCER SCREENING Cervical cancer screening should start at age 21 years unless your provider advises otherwise. After the first test: Women ages 21 through 29 should have a Pap test every 3 years. Exoprts do not agree on whether HPV testing is recommended for this age group. Women ages 30 through 65 should be screened with either a Pap test every 3 years or the HPV test every 5 years or both tests every 5 years (called cotesting ). Women who have been treated for precancer (cervical dysplasia) should continue to have Pap tests for 20 years after treatment or until age 65, whichever is longer. If you have had your uterus and cervix removed (total hysterectomy), and you have not been diagnosed with cervical cancer or precancer (high grade cervical neoplasia), you do not need cervical cancer screening. CHOLESTEROL SCREENING Cholesterol screening should begin at: Age 45 for women with no known risk factors for coronary heart disease Age 20 for women with known risk factors for coronary heart disease Repeat cholesterol screening should take place: Every 5 years for women with normal cholesterol levels More often if changes occur in lifestyle (including weight gain and diet) More often if you have diabetes, heart disease, kidney problems, or certain other conditions DIABETES SCREENING You should be screened for diabetes starting at age 35 and then repeated every 3 years if you have no risk factors for diabetes. Screening may need to start earlier and be repeated more often if you have other risk factors for diabetes, such as: You have a first degree relative with diabetes. You are overweight or have obesity. You have high blood pressure, prediabetes, or a history of heart disease. Screening for diabetes should be done if you are planning to become and you are overweight and have other risk factors such as high blood pressure. DENTAL EXAM Go to the dentist once or twice every year for an exam and cleaning. Your dentist will evaluate if you need more frequent visits. EYE EXAM Have an eye exam every 5 to 10 years before age 40. If you have vision problems, have an eye exam every 2 years or more often if recommended by your provider. You should have an eye exam that includes an examination of your retina (back of your eye) at least every year if you have diabetes. IMMUNIZATIONS Commonly needed vaccines include: Flu shot: get one every year. COVID-19 vaccine: ask your provider what is best for you. Tetanus-diphtheria and acellular pertussis (Tdap) vaccine: have one at or after age 19 as one of your tetanus-diphtheria vaccines if you did not receive it as an adolescent. Tetanus-diphtheria: have a booster (or Tdap) every 10 years. Varicella vaccine: receive 2 doses if you never had chickenpox or the varicella vaccine. Hepatitis B vaccine: receive 2, 3, or 4 doses, depending on your exact circumstances. Measles, mumps, and rubella (MMR) vaccine: receive 1 to 2 doses if you are not already immune to MMR. Your provider can tell you if you are immune. Ask your provider about the human papillomavirus (HPV) vaccine if: You have not received the HPV vaccine in the past You have not completed the full vaccine series (you should catch up on this shot) Ask your provider if you should receive other immunizations if you have certain health problems that increase your risk for some diseases such as pneumonia. INFECTIOUS DISEASE SCREENING Women who are sexually active should be screened for chlamydia and gonorrhea up until age 25. Women 25 years and older should be screened for chlamydia and gonorrhea if at high risk. Screening for hepatitis C: All adults ages 18 to 79 should get a one-time test for hepatitis C. people should be screened at every . Screening for human immunodeficiency virus (HIV): All people ages 15 to 65 should get a one-time test for HIV. Depending on your lifestyle and medical history, you may also need to be screened for infections such as syphilis and HIV, as well as other infections. PHYSICAL EXAM All adults should visit their provider from time to time, even if they are healthy. The purpose of these visits is to: Screen for disease Assess your risk of future medical problems Encourage a healthy lifestyle Update your vaccinations and other preventive care services Maintain a relationship with a provider in case of an illness Your height, weight, and BMI should be checked at every exam. During your exam, your provider may ask you about: Depression and anxiety Diet and exercise Alcohol and tobacco use Safety issues, such as using seat belts, smoke detectors, and intimate partner violence Your medicines and risk for interactions SKIN SELF-EXAM Your provider may check your skin for signs of skin cancer, especially if you're at high risk, such as if you: Have had skin cancer before Have close relatives with skin cancer Have a weakened immune system OTHER SCREENING Talk with your provider about colon cancer screening if you have a strong family history of colon cancer or polyps, or if you have had inflammatory bowel disease or polyps yourself. Routine bone density screening of women under 40 is not recommended. Coding Level of Care Code Est Pt Prev Care 18-39y(60694) Diagnoses Normal physical exam Z00.00 Mild episode of recurrent major depressive disorder F33.0 Major depression episode severity: mild TABBY (generalized anxiety disorder) F41.1 Migraine with aura and without status migrainosus, not intractable G43.109 Intractability: not intractable Status migrainosus presence: without status migrainosus Family history of breast cancer Z80.3 Severe obesity with body mass index (BMI) of 36.0 to 36.9 with serious comorbidity E66.01; Z68.36 Laboratory exam ordered as part of routine general medical examination Z00.00 Localized viral skin infection L08.9; B97.89 Additional Codes TABBY-7 Assessment Billing - TABBY-7 Assessment Tool: TABBY-7 Assessment [id number] ([id number])
[2023-04-27 07:56] VITALS: BP 104/76; PULSE 98; RESP 13; TEMP 36.3; O2SAT 98; BMI 36.7
== END 2023-04-27 08:40 | disposition home or self-care (01) ==
PROVIDERS: PCP Hospitalist; Visit Provider Nurse Practitioner Family
DX: Z00.00 Encounter for general adult medical examination without abnormal findings (principal); F33.0 Major depressive disorder, recurrent, mild; E66.01 Morbid (severe) obesity due to excess calories; Z68.36 Body mass index [BMI] 36.0-36.9, adult; F41.1 Generalized anxiety disorder; G43.109 Migraine with aura, not intractable, without status migrainosus; Z80.3 Family history of malignant neoplasm of breast; L08.9 Local infection of the skin and subcutaneous tissue, unspecified; B97.89 Other viral agents as the cause of diseases classified elsewhere
CPT/HCPCS: 99395

== ENCOUNTER 2023-04-27 08:33 | Outpatient (REF) | payer OTHER, SELFPAY ==
[2023-04-27 11:28] LABS: Hematocrit 38.3 % (37.0-47.0); Hemoglobin 12.6 g/dl (12.0-16.0); Mean Corpuscular HGB Conc 32.9 g/dl (31.0-35.0); Mean Corpuscular Hemoglobin 28.8 pg (27.0-33.0); Mean Corpuscular Volume 87.6 fL (80.0-98.0); Mean Platelet Volume 12.6 fL (9.4-12.3); Platelet Count 267 X10*3/uL (160-400); Red Blood Count 4.37 X10*6/uL (4.20-5.50); Red Cell Distribution Width 13.1 % (11.0-16.0); White Blood Count 8.2 X10*3/uL (4.8-10.8)
[2023-04-27 12:26] LABS: Alanine Aminotransferase 11 U/L (0-31); Alkaline Phosphatase 65 U/L (39-117); Anion Gap 12 (12-20); Aspartate Amino Transferase 13 U/L (5-31); Bilirubin Total 0.3 mg/dL (0.0-1.0); Blood Urea Nitrogen 7 mg/dL (9-16); Calcium 9.3 mg/dL (8.4-10.2); Carbon Dioxide 24 mmol/L (22-29); Chloride 108 mmol/L (96-108); Estimated Glomerular Filt Rate > 60; Glucose Random 97 mg/dL (60-115); Iron 54 mcg/dL (30-160); Percent Iron Saturation 20 % (15-50); Potassium 3.7 mmol/L (3.3-5.1); Sodium 140 mmol/L (135-145); TSH reflex Free T4 2.57 uIU/mL (0.32-4.0); Total Iron Binding Capacity 264 mcg/dL (228-428); Total Protein 6.8 g/dL (6.5-8.0); Unsaturated Iron Binding 210 ug/dL
[2023-04-27 15:20] LABS: Folate 5.9 ng/mL (> or = 4.0); Vitamin B12 164 pg/mL (200-900)
[2023-04-28 17:59] LABS: LDL Cholesterol Direct 78 mg/dL (<100)
[2023-05-01 17:54] LABS: VITAMIN D (1,25 OH) D3 42 pg/mL; Vit D (1,25-Dihydroxy) Total 42 pg/mL (18-72); Vitamin D (1,25 OH) D2 <8 pg/mL
== END 2023-04-27 08:34 | disposition home or self-care (01) ==
LOC: HO.WFDLDS 08:33
PROVIDERS: Visit Provider Nurse Practitioner Family
DX: Z00.00 Encounter for general adult medical examination without abnormal findings (principal); E66.01 Morbid (severe) obesity due to excess calories; Z68.36 Body mass index [BMI] 36.0-36.9, adult; Q04.8 Other specified congenital malformations of brain; F33.9 Major depressive disorder, recurrent, unspecified; F41.1 Generalized anxiety disorder; G43.109 Migraine with aura, not intractable, without status migrainosus
CPT/HCPCS: 36415; 80053; 82607; 82652; 82746; 83540; 83721; 84443; 85027

== ENCOUNTER 2023-05-05 11:31 | Outpatient (AMB) | payer OTHER, SELFPAY ==
--- NOTE | 2023-05-05 11:34 | A.OFFVIS_ITS ---
Vital Signs 05/05/23 11:38 Height 5 ft BP 112/70 Blood Pressure Location Rt brachial Position Sitting Pulse 80 Pulse Source Pulse Oximeter Pulse Oximetry (%) 98 Oxygen Delivery Method Room Air Intake Visit Reasons: 4 mo f/u - Migraines-Conf Intake Note: Patient presents for 4 month follow up migraines. migraines are still the same,no change. Allergies amitriptyline [AMITRIPTYLINE] Adverse Reaction (Severe, Verified 06/23/23 11:48) SUICIDAL IDEATION, suicidal Medication List - Last Reconciled 05/05/23 by FEDE Russell aspirin 325 mg PO DAILY bupropion HCl 450 mg PO DAILY cyanocobalamin (vitamin B-12) 1,000 mcg sublingual DAILY erenumab-aooe (Aimovig Autoinjector) 140 mg subcut ONCE 30 days etonogestrel (Nexplanon) subdermal lamotrigine 150 mg PO DAILY magnesium 250 mg PO DAILY riboflavin (vitamin B2) 400 mg (4 x 100 mg) PO DAILY 30 days sumatriptan succinate 50 - 100 mg orally at onset of headache, may repeat in 2 hrs PRN; max 2 tabs per day or 4 tabs/week (may take with Ibuprofen) 30 days HPI Comments Details: 22-yr-old female presents for f/u visit. Pt continues to have near constant migraine. Has neck tightness. She did not start Aimovig- not covered by her insurance. Sumatriptan is helpful. [facility] Medical History (Updated 05/02/23 @ 10:09 by FEDE Montiel-) Difficulty sleeping Visual snow syndrome Cerebellar tonsillar ectopia Hx of migraine headaches History of depression Surgical History (Updated 07/05/23 @ 16:02 by Anastasiia Moore [facility]) No pertinent past surgical history Family History Maternal Grandmother History of breast cancer BRCA negative Mother Depression Father Diabetes Social History Housing: Apartment Alcohol intake: current Alcohol intake frequency: a few times a month Patient Tobacco Use Status: Never used Tobacco e-Cigarette/Vaping Use: Never Used Substance Use Type: Marijuana service: No Current occupational status: employed 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 Sexual orientation: Straight/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 Gender identity: Female Cognitive needs: No Hearing needs: No Vision needs: No Female Reproductive History Menstrual Age of Menarche: 9 Physical Exam Vital Signs: Last Vital Signs Pulse 80 05/05/23 11:38 BP 112/70 05/05/23 11:38 Pulse Ox 98 05/05/23 11:38 Oxygen Delivery Method Room Air 05/05/23 11:38 Const General: cooperative and no acute distress Orientation/consciousness: patient oriented x3 Resp Effort & Inspection: normal respiratory effort and able to speak in complete sentences Neuro General: patient oriented x3 Cranial nerves: Yes CN's II-XII intact bilaterally Cognition (Neuro): normal cognition Psych Appearance: grossly normal Mental Status: mental status grossly normal Speech and movement: Normal speech and movement present Affect: normal affect Attitude: cooperative Assessment & Plan Assessment & Plan (1) Migraine headache with aura: Comment: Managed by [facility]. On both preventative and rescue medications. Code(s): G43.109 - Migraine with aura, not intractable, without status migrainosus Category: Medical Qualifiers: Status migrainosus presence: without status migrainosus Intractability: not intractable Qualified Code(s): G43.109 - Migraine with aura, not intractable, without status migrainosus (2) Cervicalgia: Code(s): M54.2 - Cervicalgia Category: Medical Plan HST no evidence of sleep apnea- if sleep worsens consider in-lab PSG. ? Will refer pt to PT for cervicalgia/migraine- order slip given to pt. ? For acute headache treatment: Sumatriptan 50-100mg prn. May take w/ OTC Ibuprofen or Naproxen. ? For headache prevention medication: Continue Riboflavin 400mg qam Stop Aimovig 140mg. Trial Ajovy 225mg sc q month. Previous preventive migraine trials: Amitriptyline- caused SI. Topiramate- ineffective. Propranolol- nightmares and weight gain. Magnesium- not tolerated.. Future considerations: Resuming Botox. ? Follow-up in 3 months or sooner w/ worsening s/s. Medications: New fremanezumab-vfrm (Ajovy) administer 225mg sc q month 225 mg (1.5 mL) subcut ONCE 1.5 mL 6RF 30 days Discontinued erenumab-aooe Discontinued Reason: Doctor's Order 140 mg subcut ONCE 30 days 1 mL 6RF Coding Level of Care Code Est Pt Level 4 (37328) Diagnoses Migraine with aura and without status migrainosus, not intractable G43.109 Status migrainosus presence: without status migrainosus Intractability: not intractable Cervicalgia M54.2
[2023-05-05 11:38] VITALS: BP 112/70; PULSE 80; O2SAT 98
== END 2023-05-05 12:17 | disposition home or self-care (01) ==
PROVIDERS: PCP Nurse Practitioner Family; Visit Provider Nurse Practitioner Family
DX: G43.109 Migraine with aura, not intractable, without status migrainosus (principal); M54.2 Cervicalgia
CPT/HCPCS: 99214

== ENCOUNTER → 2023-05-05 11:32 | Outpatient (BNVA) | payer OTHER, SELFPAY | PROVIDERS: PCP Nurse Practitioner Family; Visit Provider Nurse Practitioner Family ==

== ENCOUNTER 2023-06-21 10:28 | Outpatient (REF) | payer OTHER, SELFPAY ==
[2023-06-21 17:19] LABS: CT PCR NOT DETECTED (Not Detect.); NG PCR NOT DETECTED (Not Detect.)
[2023-06-22 13:25] LABS: BV Int Neg Control Negative (Negative); BV Int Pos Control Positive (Positive)
== END 2023-06-21 10:29 | disposition home or self-care (01) ==
LOC: HO.LAB 10:28
PROVIDERS: PCP Nurse Practitioner Family; Visit Provider Advanced Practice Midwife
DX: N90.89 Other specified noninflammatory disorders of vulva and perineum (principal)
CPT/HCPCS: 0353U; 87480; 87510; 87660

== ENCOUNTER 2023-06-21 10:28 | Outpatient (AMB) | payer OTHER, SELFPAY ==
[2023-06-21 10:30] VITALS: BP 102/68; BMI 36.7
--- NOTE | 2023-06-21 10:30 | MHC.OFFVIS ---
Vital Signs 06/21/23 10:30 Height 5 ft Weight 188 lb BMI 36.7 BP 102/68 Intake Visit Reasons: Vaginal discomfort Intake Note: pt states before period had yeast infection used diflucan. Now feels irritation Pathological Technician: Pathological Technician Present (Denise) Allergies amitriptyline [AMITRIPTYLINE] Adverse Reaction (Severe, Verified 06/21/23 10:30) SUICIDAL IDEATION, suicidal Is last menstrual period known: Yes Last menstrual period: 06/09/23 HPI Comments Details: Patient is here today with a symptom of feeling uncomfortable externally in the labial region. She denies any new intimate partner changes in any soaps external products including laundry detergent. She denies any urinary symptoms or pelvic pain. She reports her bleeding has been normal. Uses Nexplanon for contraception. 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/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 Gender identity: Female Cognitive needs: No Hearing needs: No Vision needs: No Female Reproductive History Menstrual Age of Menarche: 9 Date of last menstrual period: 06/09/23 Review of Systems Const All systems reviewed & are unremarkable except as noted in HPI and below Physical Exam Vital Signs: Last Vital Signs BP 102/68 06/21/23 10:30 BMI result Body Mass Index 36.7 Const General: cooperative, healthy appearing and no acute distress Orientation/consciousness: patient oriented x3 GI Inspection: Yes normal to inspection Palpation (GI): Soft to palpation and Other GI palpation findings present (Nontender) Rectal Exam - Female: visual inspection normal General: Yes bladder normal to palpation External Female Exam: normal appearance of the urethra Speculum Exam - Vagina: normal appearance of the vagina, normal palpation and normal vaginal discharge Speculum Exam - Cervix: normal appearance of the cervix, normal palpation and Other cervical findings present (Thick mucus at os) Bimanual exam- vagina & uterus: normal bimanual exam, normal palpation, uterine size normal, bladder normal to palpation, normal palpation, uterine shape normal and non-tender Bimanual Exam- Adnexa, other: normal adnexae Neuro General: patient oriented x3 Assessment & Plan Assessment & Plan (1) Labial irritation: Code(s): N90.89 - Other specified noninflammatory disorders of vulva and perineum Plan Instructions: Clean with warm water, no soaps, scented products. Use a cool cloth to the area several times a day if swollen and/or uncomfortable. Wear loose, cotton underclothes, avoid tight outer clothing. Air when possible. No coitus until well healed. Complete all medications as prescribed. Await final pending results for any changes in the plan of care. Call the office if there is no improvement in 24-48hrs., or if worsening symptoms. All of her questions and concerns were addressed to the best of my ability. She is agreeable to the plan of care. This note is constructed using voice recognition software. While every effort has been made to ensure accuracy, propellant charge zone assembler errors may have been included.
== END 2023-06-21 16:01 | disposition home or self-care (01) ==
PROVIDERS: PCP Nurse Practitioner Family; Visit Provider Advanced Practice Midwife
DX: N90.89 Other specified noninflammatory disorders of vulva and perineum (principal)
CPT/HCPCS: 99213

== ENCOUNTER 2023-06-21 11:01 | Outpatient (REF) | payer OTHER, SELFPAY | END 2023-06-21 11:02 | disposition home or self-care (01) | LOC: HO.LNP 11:01 | PROVIDERS: Visit Provider Advanced Practice Midwife | DX: Z13.89 Encounter for screening for other disorder (principal) ==

== ENCOUNTER → 2023-06-23 11:32 | Outpatient (BNVA) | payer OTHER, SELFPAY | PROVIDERS: PCP Nurse Practitioner Family; Visit Provider Nurse Practitioner Family ==

== ENCOUNTER 2023-06-29 14:10 | Outpatient (REF) | payer OTHER, SELFPAY ==
[2023-06-29 14:47] LABS: Hematocrit 39.8 % (37.0-47.0); Hemoglobin 13.4 g/dl (12.0-16.0); Mean Corpuscular HGB Conc 33.7 g/dl (31.0-35.0); Mean Corpuscular Hemoglobin 29.3 pg (27.0-33.0); Mean Corpuscular Volume 87.1 fL (80.0-98.0); Platelet Count 255 X10*3/uL (160-400); Red Blood Count 4.57 X10*6/uL (4.20-5.50); Red Cell Distribution Width 12.5 % (11.0-16.0); White Blood Count 6.5 X10*3/uL (4.8-10.8)
[2023-06-29 16:08] LABS: Folate 9.8 ng/mL (> or = 4.0); Vitamin B12 356 pg/mL (200-900)
== END 2023-06-29 14:11 | disposition home or self-care (01) ==
LOC: HO.LAB 14:10
PROVIDERS: Visit Provider Nurse Practitioner Family
DX: E53.8 Deficiency of other specified B group vitamins (principal)
CPT/HCPCS: 36415; 82607; 82746; 85027

== ENCOUNTER 2023-08-03 10:36 | Outpatient (AMB) | payer OTHER, SELFPAY ==
[2023-08-03 10:38] VITALS: BP 108/74; PULSE 93; RESP 14; TEMP 36.5; O2SAT 99; BMI 37.1
--- NOTE | 2023-08-03 10:38 | MHC.PC.OV ---
Vital Signs 08/03/23 10:38 Height 5 ft Weight 190 lb BMI 37.1 BP 108/74 Blood Pressure Location Rt brachial Position Sitting Respiration 14 Pulse 93 Pulse Source Pulse Oximeter Temp 97.7 F Temp Source Temporal Artery Scan Pulse Oximetry (%) 99 Oxygen Delivery Method Room Air Intake Visit Reasons: f/u b12 Intake Note: Patient would like to see if her yeast infection is gone as well if there is time. Senior Accountant Cpa Required: No Accompanied by: Self / Same As Patient Allergies amitriptyline [AMITRIPTYLINE] Adverse Reaction (Severe, Verified 08/03/23 10:57) SUICIDAL IDEATION, suicidal Medication List - Last Reconciled 08/03/23 by Yolande Silva, PAPER CUP MACHINE OPERATOR- aspirin 325 mg PO DAILY bupropion HCl XL 450 mg PO DAILY cyanocobalamin (vitamin B-12) 1,000 mcg sublingual DAILY etonogestrel (Nexplanon) subdermal fremanezumab-vfrm (Ajovy) 225 mg (1.5 mL) subcut ONCE 30 days lamotrigine 150 mg PO DAILY magnesium 250 mg PO DAILY riboflavin (vitamin B2) 400 mg (4 x 100 mg) PO DAILY 30 days sumatriptan succinate 50 - 100 mg orally at onset of headache, may repeat in 2 hrs PRN; max 2 tabs per day or 4 tabs/week (may take with Ibuprofen) 30 days Tobacco use date assessed: 04/27/23 Dental Screening Dental Screen Date: 04/27/23 HPI HPI Comments History of Present Illness Details 22-year-old female with GERD, MDD, migraine headaches with visual aura, cerebellar tonsillar ectopia, obesity, 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 No longer ff'd. Neurosurgeon Dr Vergara consult x 1. No surgery recommendation. Do not get spinal tap/LP. 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 The following labs were discussed with her. She is taking vitamin B12 a 1000 mcg sublingually daily since last office visit. Labs are now normal. 06/29/23 normal CBC , b12 and folate wnl Labs 06/29/2023 show a normal CBC ((MPV was elevated in March and is now normal), B12 now normal 356 (was 164) normal folate Other issues: wonders if she still has a vaginal yeast infection - has been tx/ miconazole and boric acid in the past; today c/o itchy and uncomfortable on the outside, no discharge. of note, started ajovy since last time. dose x 2. had local itching redness and hives. Has stopped taking. Will let Neuro know. Plan: Cont b12 1000mcg SL daily. Reviewed s/sx of b12 def. Repeat labs annually. Notify Neuro of potential reaction to Ajovy. Update allergy list w/ PCP and Pharm if in fact an allergy. Do not take until Neuro advised further. For the vaginal itching, recommend waiting until period is over, if sx don't clear let me or [facility] know, may benefit from suppressive therapy. Could try external application of topical low dose hydrocortisone. RTO in April for CPE - repeat labs ordered today. Sooner as needed. 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 Donal Rodriguez, Ceci Harrison, Phillip Schofield and colleagues, with an educational kadi from [employer] Physical exam (Primary Care) Vital Signs: Last Vital Signs Temp 97.7 F 08/03/23 10:38 Pulse 93 08/03/23 10:38 Resp 14 08/03/23 10:38 BP 108/74 08/03/23 10:38 Pulse Ox 99 08/03/23 10:38 Oxygen Delivery Method Room Air 08/03/23 10:38 BMI result Body Mass Index 37.1 Tobacco/Smoking Status: Tobacco use Status Tobacco use date assessed 04/27/23 08/03/23 10:44 Patient Tobacco Use Status Never used Tobacco 08/03/23 10:44 e-Cigarette/Vaping Use Never Used 08/03/23 10:44 Thrive Assessment: Date of Thrive Assessment Date Thrive assessed 04/27/23 08/03/23 10:44 Assessment and Plan Assessment & Plan (1) Vitamin B12 deficiency (non anemic): Code(s): E53.8 - Deficiency of other specified B group vitamins (2) Migraine headache with aura: Comment: Managed by [facility]. On both preventative and rescue medications. Code(s): G43.109 - Migraine with aura, not intractable, without status migrainosus Qualifiers: Status migrainosus presence: without status migrainosus Intractability: not intractable Qualified Code(s): G43.109 - Migraine with aura, not intractable, without status migrainosus (3) Vaginal itching: Code(s): N89.8 - Other specified noninflammatory disorders of vagina Orders: Orders Comprehensive [place]. Panel Fast 04/02/24 E53.8 - Deficiency of other specified B group vitamins, Z00.00 - Encounter for general adult medical examination without abnormal findings Hemoglobin A1c 04/02/24 E53.8 - Deficiency of other specified B group vitamins, Z00.00 - Encounter for general adult medical examination without abnormal findings Vitamin D 1,25 dihydroxy 04/02/24 E53.8 - Deficiency of other specified B group vitamins, Z00.00 - Encounter for general adult medical examination without abnormal findings Complete Blood Count no Diff 04/02/24 E53.8 - Deficiency of other specified B group vitamins, Z00.00 - Encounter for general adult medical examination without abnormal findings Lipid Panel 04/02/24 E53.8 - Deficiency of other specified B group vitamins, Z00.00 - Encounter for general adult medical examination without abnormal findings TSH reflex Free T4 04/02/24 E53.8 - Deficiency of other specified B group vitamins, Z00.00 - Encounter for general adult medical examination without abnormal findings Vitamin B12 and Folate 04/02/24 E53.8 - Deficiency of other specified B group vitamins, Z00.00 - Encounter for general adult medical examination without abnormal findings Medications: Refilled cyanocobalamin (vitamin B-12) empty stomach 1,000 mcg sublingual DAILY 90 ea 2RF Patient Instructions: Plan: Cont b12 1000mcg SL daily. Reviewed s/sx of b12 def. Repeat labs annually. Notify Neuro of potential reaction to Ajovy. Update allergy list w/ PCP and Pharm if in fact an allergy. Do not take until Neuro advised further. For the vaginal itching, recommend waiting until period is over, if sx don't clear let me or [facility]IMAL know, may benefit from suppressive therapy. Could try external application of topical low dose hydrocortisone. RTO in April for CPE - repeat labs ordered today. Sooner as needed. Coding Level of Care Code Est Pt Level 4 (28009) Diagnoses Vitamin B12 deficiency (non anemic) E53.8 Migraine with aura and without status migrainosus, not intractable G43.109 Status migrainosus presence: without status migrainosus Intractability: not intractable Vaginal itching N89.8
== END 2023-08-03 11:07 | disposition home or self-care (01) ==
PROVIDERS: PCP Nurse Practitioner Family; Visit Provider Nurse Practitioner Family
DX: E53.8 Deficiency of other specified B group vitamins (principal); G43.109 Migraine with aura, not intractable, without status migrainosus; N89.8 Other specified noninflammatory disorders of vagina
CPT/HCPCS: 99214

== ENCOUNTER 2023-08-30 11:27 | Outpatient (AMB) | payer OTHER, SELFPAY ==
[2023-08-30 11:33] VITALS: BMI 37.1
--- NOTE | 2023-08-30 11:33 | A.OFFVIS_ITS ---
Vital Signs 08/30/23 11:33 Height 5 ft Weight 190 lb BMI 37.1 Intake Visit Reasons: 4 mo f/u - Migraines-CONF Intake Note: Patient presents for 4 month follow up migraines. Patient migraines are still the same no changes Allergies amitriptyline [AMITRIPTYLINE] Adverse Reaction (Severe, Verified 08/30/23 11:35) SUICIDAL IDEATION, suicidal Medication List - Last Reconciled 08/30/23 by FEDE Russell aspirin 325 mg PO DAILY bupropion HCl XL 450 mg PO DAILY cyanocobalamin (vitamin B-12) 1,000 mcg sublingual DAILY etonogestrel (Nexplanon) subdermal fremanezumab-vfrm (Ajovy) 225 mg (1.5 mL) subcut ONCE 30 days lamotrigine 150 mg PO DAILY magnesium 250 mg PO DAILY riboflavin (vitamin B2) 400 mg (4 x 100 mg) PO DAILY 30 days sumatriptan succinate 50 - 100 mg orally at onset of headache, may repeat in 2 hrs PRN; max 2 tabs per day or 4 tabs/week (may take with Ibuprofen) 30 days HPI Comments Details: 22-yr-old female presents for f/u visit. Pt denies any significant interval medical changes. Pt did not tolerate Ajovy- caused bothersome injection site reaction and was not very effective. Sumatriptan is helpful. She has started PT- was not sure if it was helping, but does notice more headaches when she does not go. She continues to have daily headache w/ more severe migraine attack lasting all day, occurring 2-3 days per week (8-12 migraine days per 4 weeks), and has had this pattern every month for > than 3 months. She continues to have episodes of eye movements and visual snow- not specific to migraine attacks. 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 Baseline Migraine headache characteristics: Denies aura. Daily headache: mild-moderate throbbing, sometimes pressure, frontal and sometimes postoccipital. Migraine headache: Severe throbbing, sometimes pressure, frontal, and postoccipital pain a/w some photophobia and phonophobia, osmophobia, nausea, brain fog, possibly at times her arms can have pins and needles, activity intolerance- unable to do her daily activities. Laugh induced headache: A discomfort that starts in the bilateral neck, rushes up to bilateral frontal region where the pain starts throbbing. This lasts a few seconds. Sometimes, but not always, a low-level headache may follow this. This specific headache is always triggered by laughing. Brain MRA 2022- normal. [facility] Medical History (Updated 09/17/23 @ 16:45 by FEDE Russell) Difficulty sleeping Visual snow syndrome Cerebellar tonsillar ectopia Hx of migraine headaches History of depression Surgical History No pertinent past surgical history Family History Maternal Grandmother History of breast cancer BRCA negative Mother Depression Father Diabetes Social History Housing: Apartment Alcohol intake: current Alcohol intake frequency: a few times a month Patient Tobacco Use Status: Never used Tobacco e-Cigarette/Vaping Use: Never Used Substance Use Type: Marijuana service: No Current occupational status: employed 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 Gender identity: Female Cognitive needs: No Hearing needs: No Vision needs: No Female Reproductive History Menstrual Age of Menarche: 9 Physical Exam Vital Signs: BMI result Body Mass Index 37.1 Const General: cooperative and no acute distress Orientation/consciousness: patient oriented x3 Resp Effort & Inspection: normal respiratory effort and able to speak in complete sentences Neuro General: patient oriented x3 Cranial nerves: Yes CN's II-XII intact bilaterally Cognition (Neuro): normal cognition Psych Appearance: grossly normal Mental Status: mental status grossly normal Speech and movement: Normal speech and movement present Affect: normal affect Attitude: cooperative Assessment & Plan Assessment & Plan (1) Chronic migraine without aura: Comment: Pt has a severe throbbing/pressure headache a/w multiple symptoms including but not limited to photophobia, phonophobia, osmophobia, nausea, activity intolerance lasting > 4 hours per attack, occurring 8-12 days per month in setting of daily headache. Migraine attacks are triptan responsive. Pt's migraine presentation is c/w chronic migraine without aura per current ICHD-3 diagnostic criteria. Code(s): G43.709 - Chronic migraine without aura, not intractable, without status migrainosus Category: Medical Plan: The International Classification of Headache Disorders 3rd edition 1.1 Migraine without aura Previously used terms: Common migraine; hemicrania simplex. Description: Recurrent headache disorder manifesting in attacks lasting 4-72 hours. Typical characteristics of the headache are unilateral location, pulsating quality, moderate or severe intensity, aggravation by routine physical activity and association with nausea and/or photophobia and phonophobia. Diagnostic criteria: * At least five attacks1?fulfilling criteria B-D * Headache attacks lasting 4-72 hr (untreated or unsuccessfully treated)2;3 * Headache has at least two of the following four characteristics: * unilateral location * pulsating quality * moderate or severe pain intensity * aggravation by or causing avoidance of routine physical activity (eg, walking or climbing stairs) * During headache at least one of the following: * nausea and/or vomiting * photophobia and phonophobia * Not better accounted for by another ICHD-3 diagnosis. 1.3 Chronic migraine Description: Headache occurring on 15 or more days/month for more than 3 months, which, on at least 8 days/month, has the features of migraine headache. Diagnostic criteria: * Headache (migraine-like or [id number]) on >=5 days/month for >3 months , and fulfilling criteria B and C * Occurring in a patient who has had at least five attacks fulfilling criteria B-D for 1.1?Migraine without aura?and/or criteria B and C for 1.2?Migraine with aura * On >8 days/month for >3 months, fulfilling any of the following2: * criteria C and D for 1.1?Migraine without aura * criteria B and C for 1.2?Migraine with aura * believed by the patient to be migraine at onset and relieved by a triptan or ergot derivative * Not better accounted for by another ICHD-3 diagnosis3;4;5. Reference: https://ichd-[email or web address].org/1-migraine/0-1-yhussitt-without-aura/ https://ichd-3.org/1-migraine/2-4-pobdhcn-migraine/ (2) Cervicalgia: Code(s): M54.2 - Cervicalgia Category: Medical (3) Visual snow syndrome: Code(s): H53.19 - Other subjective visual disturbances Category: Medical Plan HST no evidence of sleep apnea- if sleep worsens consider in-lab PSG. ? Continue PT for cervicalgia/migraine. Note degree of cervicalgia does not account for severity of chronic migraine burden. ? For acute headache treatment: Sumatriptan 50-100mg prn. May take w/ OTC Ibuprofen or Naproxen. ? For chronic migraine w/o aura prevention medication: Continue Riboflavin 400mg qam Stop Ajovy 225mg sc q month- not effective and not tolerated. Trial Candesartan 4mg qd x's 1-2 weeks then 8mg qd- this is now a 1st line migraine prevention tx per most recent S guidelines. Resume Botox 155 units IM q 12 weeks- as pt has previously had good effect from use. Previous preventive migraine trials: Amitriptyline- caused SI. Topiramate- ineffective. Propranolol- nightmares and weight gain. Magnesium- not tolerated. Ajovy 225mg sc q month- not effective and not tolerated. Note- Aimovig was never tried d/t denied by her insurance plan. Follow-up in 3 months or sooner w/ worsening s/s. Medications: New onabotulinumtoxinA (Botox) inject 155 units IM across forehead, scalp, and neck 200 units IM ONCE 1 ea 3RF 12 weeks G43.709 - Chronic migraine without aura, not intractable, without status migrainosus candesartan 8 mg (2 x 4 mg) PO DAILY 180 tabs 1RF 90 days Coding Level of Care Code Est Pt Level 4 (52286) Diagnoses Chronic migraine without aura G43.709 Cervicalgia M54.2 Visual snow syndrome H53.19
== END 2023-08-30 12:17 | disposition home or self-care (01) ==
PROVIDERS: PCP Nurse Practitioner Family; Visit Provider Nurse Practitioner Family
DX: G43.709 Chronic migraine without aura, not intractable, without status migrainosus (principal); M54.2 Cervicalgia; H53.19 Other subjective visual disturbances
CPT/HCPCS: 99214

== ENCOUNTER → 2023-08-30 11:27 | Outpatient (BNVA) | payer OTHER, SELFPAY | PROVIDERS: PCP Nurse Practitioner Family; Visit Provider Nurse Practitioner Family ==

== ENCOUNTER 2023-09-30 15:17 | Outpatient (REF) | payer OTHER, SELFPAY | END 2023-09-30 15:18 | disposition home or self-care (01) | LOC: HO.LNP 15:17 | PROVIDERS: PCP Nurse Practitioner Family; Visit Provider Advanced Practice Midwife | DX: N92.1 Excessive and frequent menstruation with irregular cycle (principal); Z97.5 Presence of (intrauterine) contraceptive device | CPT/HCPCS: 81025 ==

== ENCOUNTER 2023-09-30 15:17 | Outpatient (AMB) | payer OTHER, SELFPAY ==
--- NOTE | 2023-09-30 15:29 | A.OFFVIS_ITS ---
Vital Signs 09/30/23 15:31 BP 110/64 Intake Visit Reasons: bleeding on nexplanon Vocational Rehabilitation Administrator: Vocational Rehabilitation Administrator Present (Denise) Allergies amitriptyline [AMITRIPTYLINE] Adverse Reaction (Severe, Verified 09/30/23 15:30) SUICIDAL IDEATION, suicidal Is last menstrual period known: Yes (till 08/06 then 08/16 to 08/20 09/16 to 09/19) Last menstrual period: 08/02/23 HPI Comments Details: Patient is here today with concerns that she has had an irregular cycle bleed with the Nexplanon in July bled on August 01 and then again on the . She denies any pelvic pain, irritation vaginal odors or itching. [facility] she thinks in [facility] December timeframe. She reports her normal bleeding pattern is monthly. TSH was normal in March. Patient is aware her co-pay is high for control and will [facility] Medical History (Updated 09/17/23 @ 16:45 by FEDE Russell) Difficulty sleeping Visual snow syndrome Cerebellar tonsillar ectopia Hx of migraine headaches History of depression Surgical History No pertinent past surgical history Family History Maternal Grandmother History of breast cancer BRCA negative Mother Depression Father Diabetes Social History Housing: Apartment Alcohol intake: current Alcohol intake frequency: a few times a month Patient Tobacco Use Status: Never used Tobacco e-Cigarette/Vaping Use: Never Used Substance Use Type: Marijuana service: No Current occupational status: employed 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 Sexual orientation: Straight/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 Gender identity: Female Cognitive needs: No Hearing needs: No Vision needs: No Female Reproductive History Menstrual Age of Menarche: 9 Date of last menstrual period: 08/02/23 control method: implanted (2020-December) Review of Systems Const All systems reviewed & are unremarkable except as noted in HPI and below Physical Exam Vital Signs: Last Vital Signs BP 110/64 09/30/23 15:31 Const General: cooperative, healthy appearing and no acute distress Orientation/consciousness: patient oriented x3 GI Inspection: Yes normal to inspection Palpation (GI): Soft to palpation and Other GI palpation findings present (Nontender) Rectal Exam - Female: visual inspection normal General: Yes bladder normal to palpation External Female Exam: normal appearance of the urethra Speculum Exam - Vagina: normal appearance of the vagina, normal palpation and normal vaginal discharge Speculum Exam - Cervix: normal appearance of the cervix and normal palpation Bimanual exam- vagina & uterus: normal bimanual exam, normal palpation, uterine size normal, bladder normal to palpation, normal palpation, uterine shape normal and non-tender Bimanual Exam- Adnexa, other: normal adnexae Neuro General: patient oriented x3 Results AMB Test Urine AMB Test Urine Negative Last Edit by DARCIE Robins on 09/30/23 15:37 Results Reviewed Results Reviewed: Laboratory Last Values [facility]st Clinic Negative 09/30/23 15:37 Assessment & Plan Assessment & Plan (1) Breakthrough bleeding on Nexplanon: Code(s): N92.1 - Excessive and frequent menstruation with irregular cycle; Z97.5 - Presence of (intrauterine) contraceptive device Plan Discussed: Common reasons for bleeding on control. Plan chlamydia and gonorrhea, and BV panel today. Observe bleeding pattern last cycle was normal if continues without any concern [facility] and [facility] date of insertion so that she can have the replacement done before the current implant expires. All of her questions and concerns were addressed to the best of my ability and shared decision making. She is agreeable to the plan of care. This note is constructed using voice recognition software. While every effort has been made to ensure accuracy, blasting gang miner errors may have been included. Orders: Orders AMB HCG Urine Test Today Z32.02 - Encounter for test, result negative CT NG by PCR Today N92.1 - Excessive and frequent menstruation with irregular cycle, Z97.5 - Presence of (intrauterine) contraceptive device Bacterial Vaginosis Panel Today N92.1 - Excessive and frequent menstruation with irregular cycle, Z97.5 - Presence of (intrauterine) contraceptive device Coding Level of Care Code Est Pt Level 3 (70604) Diagnoses Breakthrough bleeding on Nexplanon N92.1; Z97.5
[2023-09-30 15:31] VITALS: BP 110/64
== END 2023-09-30 18:46 ==
PROVIDERS: PCP Nurse Practitioner Family; Visit Provider Advanced Practice Midwife
DX: N92.1 Excessive and frequent menstruation with irregular cycle (principal); Z97.5 Presence of (intrauterine) contraceptive device; Z32.02 Encounter for pregnancy test, result negative
CPT/HCPCS: 99213

== ENCOUNTER 2023-09-30 15:55 | Outpatient (REF) | payer OTHER, SELFPAY ==
[2023-09-30 17:45] LABS: Bacterial Vaginosis PCR NEGATIVE (Negative); Candida Group PCR NOT DETECTED (Not Detect); Candida glab krusei PCR NOT DETECTED (Not Detect); Trichomonas vaginalis PCR NOT DETECTED (Not Detect)
[2023-09-30 18:15] LABS: CT PCR NOT DETECTED (Not Detect.); NG PCR NOT DETECTED (Not Detect.)
== END 2023-09-30 15:56 | disposition home or self-care (01) ==
LOC: HO.LAB 15:55
PROVIDERS: Visit Provider Advanced Practice Midwife
DX: Z32.02 Encounter for pregnancy test, result negative (principal); Z97.5 Presence of (intrauterine) contraceptive device; N92.1 Excessive and frequent menstruation with irregular cycle
CPT/HCPCS: 0352U; 87491; 87591

== ENCOUNTER 2023-10-04 14:17 | Outpatient (AMB) | payer OTHER, SELFPAY ==
--- NOTE | 2023-10-04 14:20 | MHC.OFFWIV ---
Intake Vital Signs 10/04/23 14:22 Height 5 ft Weight 195 lb BMI 38.1 BP 114/72 Blood Pressure Location Rt brachial Position Sitting Pulse 111 H Pulse Source Pulse Oximeter Temp 98.4 F Temp Source Oral Pulse Oximetry (%) 98 Oxygen Delivery Method Room Air Intake Visit Reasons: ES Concern on rash on her back Intake Note: pt c/o rash on back. Started behind ear . Spread to back Patient Tobacco Use Status: Never used Tobacco Allergies amitriptyline [AMITRIPTYLINE] Adverse Reaction (Severe, Verified 10/04/23 14:21) SUICIDAL IDEATION, suicidal Do you need a note to return to daycare/school/sports/work: No HPI HPI Comments History of Present Illness Details 23 yo female patient who presents to the walk in clinic with c/o Rash on her Back since this morning. She had a rash behind right ear, that she noticed Tuesday. She does report that her BF informed her yesterday t she has this rash on her back. Pt did not know she had one. Denies burning, or itching. Denies any changes to cosmetic products, detergent or diet. [facility] Medical History (Updated 09/17/23 @ 16:45 by FEDE Russell) Difficulty sleeping Visual snow syndrome Cerebellar tonsillar ectopia Hx of migraine headaches History of depression Surgical History No pertinent past surgical history Family History Maternal Grandmother History of breast cancer BRCA negative Mother Depression Father Diabetes Social History Housing: Apartment Alcohol intake: current Alcohol intake frequency: a few times a month Patient Tobacco Use Status: Never used Tobacco e-Cigarette/Vaping Use: Never Used Substance Use Type: Marijuana service: No Current occupational status: employed 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 Sexual orientation: Straight/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 Gender identity: Female Cognitive needs: No Hearing needs: No Vision needs: No Female Reproductive History Menstrual Age of Menarche: 9 Review of Systems Const All systems reviewed & are unremarkable except as noted in HPI and below Physical Exam Vital Signs: Last Vital Signs Temp 98.4 F 10/04/23 14:22 Pulse 111 H 10/04/23 14:22 BP 114/72 10/04/23 14:22 Pulse Ox 98 10/04/23 14:22 Oxygen Delivery Method Room Air 10/04/23 14:22 BMI result Body Mass Index 38.1 Const General: comfortable and no acute distress Nutritional Appearance: obese Orientation/consciousness: patient oriented x3 Skin Other: Small red pinpoint rash on the center of back. Dry skin. Neuro General: patient oriented x3, gait normal and moves all extremities Psych Speech and movement: Normal speech and movement present Assessment & Plan Assessment & Plan (1) Rash and nonspecific skin eruption: Code(s): R21 - Rash and other nonspecific skin eruption Plan: Dermatitis vs Eczema vs Miliaria. H/o heat rash as child. OTC Hydrocortisone cream PRN Skin moustirizers Coding Level of Care Code Est Pt Level 3 (85400) Diagnoses Rash and nonspecific skin eruption R21 Time Spent (min) 15
[2023-10-04 14:22] VITALS: BP 114/72; PULSE 111; TEMP 36.9; O2SAT 98; BMI 38.1
== END 2023-10-04 15:17 | disposition home or self-care (01) ==
PROVIDERS: PCP Nurse Practitioner Family; Visit Provider Nurse Practitioner Family
DX: R21 Rash and other nonspecific skin eruption (principal)
CPT/HCPCS: 99213

== ENCOUNTER 2024-01-11 09:00 | Outpatient (AMB) | payer OTHER, SELFPAY ==
[2024-01-11 09:02] VITALS: BMI 39.1
--- NOTE | 2024-01-11 09:02 | MHC.OFFVIS ---
Vital Signs 01/11/24 09:02 Height 5 ft Weight 200 lb BMI 39.1 Intake Visit Reasons: BOTOX Intake Note: Patient presents for Botox Allergies amitriptyline [AMITRIPTYLINE] Adverse Reaction (Severe, Verified 01/11/24 09:04) SUICIDAL IDEATION, suicidal Medication List - Last Reconciled 01/11/24 by Emy Solorio MD bupropion HCl XL 150 mg PO DAILY bupropion HCl XL 450 mg PO DAILY candesartan 8 mg (2 x 4 mg) PO DAILY 90 days cyanocobalamin (vitamin B-12) 1,000 mcg sublingual DAILY etonogestrel (Nexplanon) subdermal magnesium 250 mg PO DAILY onabotulinumtoxinA (Botox) 200 units IM ONCE 12 weeks riboflavin (vitamin B2) 400 mg (4 x 100 mg) PO DAILY 30 days sumatriptan succinate 50 - 100 mg orally at onset of headache, may repeat in 2 hrs PRN; max 2 tabs per day or 4 tabs/week (may take with Ibuprofen) 30 days HPI Comments Details: ? 23y/o female comes for treatment of migraines with botox. ??? Most frequent reported adverse reactions following injection of botox for chronic migraine include neck pain (9%), headache(5%), eyelid ptosis(4%), migraine(4%), muscular weakness(4%), musculuskeletal stiffness(4%), bronchitis(3%), injection site pain (3%), musculoskeletal pain(3%), myalgia(3%), facial paresis(2%), HTN(2%) and muscle spasms(2%) were discussed in detail. ??? Botulinum toxin typeA 200units Lot no [id number] expiration Mar 2026 was diluted with 4 cc of normal saline . ??? Muscles injected- ??? Frontalis 4 sites ??? Procerus 1 site ??? Guest Relations Executive- 2 sites ??? Temporalis- 8 sites ??? Occipitalis- 6 sites ??? Cervical paraspinals- 4 sites ??? Trapezius- 6 sites- 10 units each ??? 5 units each in 31 site ??? Total use- 185units ??? Discarded-15units [facility] Medical History Difficulty sleeping Visual snow syndrome Cerebellar tonsillar ectopia Hx of migraine headaches History of depression Surgical History No pertinent past surgical history Family History Maternal Grandmother History of breast cancer BRCA negative Mother Depression Father Diabetes Social History Housing: Apartment Alcohol intake: current Alcohol intake frequency: a few times a month Patient Tobacco Use Status: Never used Tobacco e-Cigarette/Vaping Use: Never Used Substance Use Type: Marijuana service: No Current occupational status: employed 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 Sexual 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: 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/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 Gender identity: Female Cognitive needs: No Hearing needs: No Vision needs: No Female Reproductive History Menstrual Age of Menarche: 9 Physical Exam Vital Signs: BMI result Body Mass Index 39.1 Const General: cooperative and no acute distress Orientation/consciousness: patient oriented x3 Resp Effort & Inspection: normal respiratory effort and able to speak in complete sentences Neuro General: patient oriented x3 Cranial nerves: Yes CN's II-XII intact bilaterally Cognition (Neuro): normal cognition Psych Appearance: grossly normal Mental Status: mental status grossly normal Speech and movement: Normal speech and movement present Affect: normal affect Attitude: cooperative Office Procedures Botulinum toxin Injection 46291 - Migraine Procedure code (CPT) selection complete Office Meds onabotulinumtoxinA 200 unit solution for injection Performing Provider: Emy Solorio MD Performing Location: [facility] Administered by: Emy Solorio MD on 01/11/24 09:34 Dose Route Admin Location Dispensed Lot Number Expiration Date [facility] Customer Sales Representative 185 unit subcut 200 units [id number] 03/31/26 [id number] [employer]ERGAN/BOTOX Comments: see HPI Assessment & Plan Assessment & Plan (1) Chronic migraine without aura: Comment: Code(s): G43.709 - Chronic migraine without aura, not intractable, without status migrainosus Category: Medical Qualifiers: Status migrainosus presence: without status migrainosus Intractability: intractable Qualified Code(s): G43.719 - Chronic migraine without aura, intractable, without status migrainosus Plan Patient tolerated the procedure well. she will call with any side effects Orders: Orders AMB Botulinum toxin Injection Today G43.719 - Chronic migraine without aura, intractable, without status migrainosus Medications: New onabotulinumtoxinA 200 units subcut ONCE 1 ea 0RF migraine G43.719 - Chronic migraine without aura, intractable, without status migrainosus Coding Level of Care Code Est Pt Level 1 (35181) Diagnoses Intractable chronic migraine without aura and without status migrainosus G43.719 Status migrainosus presence: without status migrainosus Intractability: intractable CPT Codes Botox Injection - Botox 3: 67559 - Migraine ([id number])
== END 2024-01-11 09:21 | disposition home or self-care (01) ==
PROVIDERS: PCP Nurse Practitioner Family; Visit Provider Psychiatry & Neurology Neurology
DX: G43.719 Chronic migraine without aura, intractable, without status migrainosus (principal)
CPT/HCPCS: 64615

== ENCOUNTER → 2024-01-11 09:00 | Outpatient (BNVA) | payer OTHER, SELFPAY | PROVIDERS: PCP Nurse Practitioner Family; Visit Provider Psychiatry & Neurology Neurology | DX: G43.719 Chronic migraine without aura, intractable, without status migrainosus (principal) | CPT/HCPCS: 64615; 99211; J0585 ==

== ENCOUNTER 2024-04-30 11:48 | Outpatient (AMB) | payer OTHER, SELFPAY ==
--- NOTE | 2024-04-30 11:49 | A.OFFPC_ITS ---
Vital Signs 04/30/24 11:55 Height 5 ft Weight 208 lb BMI 40.6 BP 112/68 Blood Pressure Location Rt brachial Position Sitting Respiration 12 Pulse 95 Pulse Source Pulse Oximeter Temp 97.1 F Temp Source Oral Pulse Oximetry (%) 98 Oxygen Delivery Method Room Air Intake Visit Reasons: PE Intake Note: annual physical and patient also complaining about to stomach issues x 2 weeks ago Bridge Painter Required: No Allergies amitriptyline [AMITRIPTYLINE] Adverse Reaction (Severe, Verified 04/30/24 11:50) SUICIDAL IDEATION, suicidal Medication List - Last Reconciled 04/30/24 by Yolande Silva, ASSISTANT TENNIS COACH- bupropion HCl XL 150 mg PO DAILY bupropion HCl XL 450 mg PO DAILY candesartan 8 mg (2 x 4 mg) PO DAILY 90 days etonogestrel (Nexplanon) subdermal hydroxyzine HCl mg PO PRN onabotulinumtoxinA (Botox) 200 units IM ONCE 12 weeks sumatriptan succinate 50 - 100 mg orally at onset of headache, may repeat in 2 hrs PRN; max 2 tabs per day or 4 tabs/week (may take with Ibuprofen) 30 days Tobacco use date assessed: 04/30/24 Dental Screening Dental Screen Date: 04/30/24 Did you have a dental visit in the last 12 months?: Yes Did you have a dental problem in the last 6 months where you did not have access to dental care?: No Was dental information given to patient?: Patient has dentist HPI HPI Comments History of Present Illness Details 23-year-old female with GERD, MDD, migra ine headaches with visual aura, cerebellar tonsillar ectopia, obesity, b12 def 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 No surgery recommendation. Do not get spinal tap/LP. 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 - Stomach issues initially identified in 2020; colonoscopy and endoscopy were normal. - Current antibiotics for a derm cyst ar e exacerbating symptoms of abdominal cramping and diarrhea. managed by derm, will need I&D - A hiatal hernia was discovered during past assessments. - No gastroenterology follow-up is curre ntly active. - Managing symptoms by avoiding trigger foods. - Symptoms include nausea without vomiti ng, and diarrhea, with relief from Zofran (taking moms) Denies fever, chills, change in urination, blood in stool or urine. Hx of GERD, PRN tums. Lots of stress and anxiety. ? contributing. Review of Systems - Gastrointestinal: Reports abdominal cr amping, diarrhea, nausea. Denies vomiting. - Eyes: Denies any new vision issues. Re ports dry eyes. - Neurological: Reports migraines manage d with Botox and sumatriptan. - Mood: Reports generalized anxiety and major depressive disorder, managed with bupropion and hydroxyzine. Physical Exam General: Well developed, well nourished, in no acute distress. Appears stated age. Head: Normocephalic, atraumatic. Eyes: Pupils are equal, round and reactive to light and accommodation. Conjunctivae are clear. Vision grossly normal. Ears: TMs clear AU, EACS WNL Nose: Patent, without discharge. Neck: Supple, no adenopathy or thyromegaly. Breast: Edu on SBE Lungs: Clear to auscultation bilaterally. No rales, rhonchi or wheeze noted. Good air flow in all flores. Heart: Regular rate and rhythm. No murmurs, click, rubs or gallops are noted. Abdomen: Bowel sounds present in all quadrants. The abdomen is soft, tender over epigastrum w/o rebound, with no masses or organomegaly noted. No hernias are noted. Patient reports upper abdominal pain and cramping, exacerbated by eating. : Deferred. Reviewed recommendations for routine CARDIOLOGY COORDINATOR Pulses: Peripheral pulses are equal and palpable bilaterally. Extremities: No clubbing, cyanosis nor edema is noted. Lower legs examined. Neurologic: Gait and station normal. Cranial Nerves 2-12 intact. Motor strength grossly symmetrical and intact. No sensory loss. Balance normal. Skin: No rashes, ulcers, or lesions noted. Turgor is good. Skin color is good. Hair and nails are without abnormalities. Cyst R anterior chest Psych: Normal eye contact, affect and mood appropriate, and normal interactions. Patient is alert and appropriate to context. Results see below HDL low b12 low normal hep profile and h pylori stool pending Discussion Notes I discussed the ongoing gastrointestinal symptoms with the patient, referral to gastroenterology. Considering testing for H. pylori to further explore the cause of current symptoms. Discussed medication options; I will prescribe Zofran, cautioning its constipating side effect. Additionally, upon completing an H. pylori test, recommended trialing [id number] Omeprazole if symptoms persist. I advised a referral to gastroenterology while acknowledging the patient may cancel if symptoms resolve. We scheduled necessary laboratory work for general screening and to reassess B12 levels. Assessment and Plan 1. B12 Deficiency: low end of normal rec ommend daily MVI 2. Migraine: Continue with current treat ment plan, which includes Botox and s umatriptan. Regular neurology follow-ups are adequate for ongoing control. 3. Gastroesophageal Reflux Disease (GERD ): Omeprazole will be considered following H. pylori tests if symptoms persist. Currently not medicated. GI referral in place 4. Gastrointestinal Symptoms: Obtain a s tool sample for H. pylori testing due to persistent and exacerbated gastrointestinal symptoms. Could be mood related and also worsened by current use of AB 5. Anxiety & Depression: Maintain curren t medication protocol. Continue ongoing counseling for management and support. 6. Cyst: Surgical consultation for the c yst is required for removal; schedule remains pending. Active w derm for this Consent Patient was informed and verbally consented to the use of an ambient scribe for clinic note documentation during this visit. An additional 20 minutes was spent addressing the problem(s) noted at todays visit. This includes time spent before the visit reviewing the chart, time spent during the visit, and time spent after the visit on documentation reviewing laboratory results, diagnostic imaging, medications, performing a medically necessary evaluation, counseling on diagnoses, care coordination, ordering appropriate tests, ordering appropriate medications, review of tests performed by other providers, reporting test results with the patient, communication with other healthcare providers. RTO 6 MONTHS ROUTINE FU, SOONER PRN PFSH Medical History Difficulty sleeping Visual snow syndrome Cerebellar tonsillar ectopia Hx of migraine headaches History of depression Surgical History No pertinent past surgical history Family History Maternal Grandmother History of breast cancer BRCA negative Mother Depression Father Diabetes Social History Housing: Apartment Alcohol intake: current Alcohol intake frequency: a few times a month Patient Tobacco Use Status: Never used Tobacco e-Cigarette/Vaping Use: Never Used Substance Use Type: Marijuana service: No Current occupational status: employed 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 1. Little interest or pleasure in doing things: several days 2. Feeling down, depressed, or hopeless: several days 3. Trouble falling or staying asleep, or sleeping too much: not at all 4. Feeling tired or having little energy: more than half the days 5. Poor appetite or overeating: not at all 6. Feeling bad about yourself - or that you are a failure or have let yourself or your family down: not at all 7. Trouble concentrating on things, such as reading the newspaper or watching television: not at all 8. Moving or speaking so slowly that other people could have noticed. Or the opposite - being so fidgety or restless that you have been moving around a lot more than usual: not at all 9. Thoughts that you would be better off or of hurting yourself in some way: not at all Total score: 4 Depression Screening Interpretation: Positive Depression Screening Follow-up: Existing condition and In treatment Depression Screening Done: Yes 09418 - PHQ-9 Billing: Yes Source: Developed by Drs. Donal Rodriguez, Ceci Harrison, Phillip Schofield and colleagues, with an educational kadi from [employer]. Thrive Questionnaire Date Thrive assessed: 04/30/24 I am a: Patient What is your living situation today?: I have a steady place to live Within the past 12 months, did the food you bought not last and you didn't have the money to get more?: Never true Within the past 12 months, did you worry whether your food would run out before you got money to buy more?: Never true Do you have trouble paying for medicines?: No Do you have trouble getting transportation to medical appointments?: No Do you have trouble paying your heating and electricity bill?: No Do you have trouble taking care of your child, family member or friend?: No Do you have trouble with day-to-day activities such as bathing, preparing meals, shopping, managing finances, etc.?: No Are you currently unemployed and looking for a job?: No Are you interested in more education?: No Please select the resources that you would like help with: None Currently or been in a relationship where the following occur: No concerns reported THRIVE Score: 0 AUDIT C Alcohol Use Questionnaire (AUDIT-C) 1. How often do you have a drink containing alcohol?: Monthly or less 2. How many drinks containing alcohol do you have on a typical day when you are drinking?: 1 or 2 3. How often do you have six or more drinks on one occasion?: Never Total Score: 1 Score Reviewed/Action Taken: Yes TABBY-7 AMB Questionnaire TABBY-7 Date TABBY - 7 assessed: 04/30/24 Feeling nervous, anxious, or on edge: 1 = Several days Not being able to stop or control worryin = Several days Worrying too much about different things: 1 = Several days Trouble relaxin = Not at all Being so restless that it is hard to sit still: 0 = Not at all Becoming easily annoyed or irritable: 2 = More than half the days Feeling afraid as if something awful might happen: 1 = Several days Total TABBY-7 score (0-4 normal; 5-9 mild; 10-14 moderate; 15-21 severe): 6 Source: Developed by Drs. Donal Rodriguez, Ceci Harrison, Phillip Schofield and colleagues, with an educational kadi from [employer]. TABBY-7 Assessment Billing TABBY-7 Assessment Tool: TABBY-7 Assessment 49999 Physical exam (Primary Care) Vital Signs: Last Vital Signs Temp 97.1 F 04/30/24 11:55 Pulse 95 04/30/24 11:55 Resp 12 04/30/24 11:55 BP 112/68 04/30/24 11:55 Pulse Ox 98 04/30/24 11:55 Oxygen Delivery Method Room Air 04/30/24 11:55 BMI result Body Mass Index 40.6 BMI Assessment/Plan discussion: High BMI High, discussed plan: lifestyle Tobacco/Smoking Status: Tobacco use Status Tobacco use date assessed 04/30/24 04/30/24 11:52 Patient Tobacco Use Status Never used Tobacco 04/30/24 11:52 e-Cigarette/Vaping Use Never Used 04/30/24 11:52 PHQ-9: PHQ-9 Score PHQ-9: Total score 4 04/30/24 12:28 Depression Screening Interpretation: Positive Depression Screening Follow-up: Existing condition and In treatment Thrive Assessment: Date of Thrive Assessment Date Thrive assessed 04/30/24 04/30/24 11:52 Currently or been in a relationship where the following occur: No concerns reported Results Reviewed Results Reviewed: RUN: 04/30/24 1739 PAGE 1 [facility] [address] [place] [id number] Monument Setter: Shlomo Corona M.D. Specimen Inquiry Name: Jolynn Caldwell Age/Sex: 23/F : 2000 Unit#: [id number] Attend Dr: Yolande Silva Re04/30/24 Status: REG REF Location: HO.WFDLDS Disch: SPEC : [id number] JUNAID: 04/30/24 STATUS: COMP REQ : [id number] RECD: 04/30/24-[address]: Yolande Silva COMP: 04/30/24 ENTERED: 04/30/24-[address]: ORDERED: CBC No Diff Test Result Flag Reference WBC 5.3 4.8-10.8 X10*3/uL RBC 4.37 4.20-5.50 X10*6/uL HGB 12.4 12.0-16.0 g/dl HCT 37.0 37.0-47.0 % MCV 84.7 80.0-98.0 fL MCH 28.4 27.0-33.0 pg MCHC 33.5 31.0-35.0 g/dl RDW 12.3 11.0-16.0 % PLT 270 160-400 X10*3/uL MPV 12.4 H 9.4-12.3 fL NRBC Pct Auto 0.0 0.0-0.2 /100WBC NRBC Abs Auto 0.000 0.0-0.012 X10*3/uL RUN: 04/30/24 6153 PAGE 1 [facility] [address] [place] [id number] Monument Setter: Shlomo Corona M.D. Specimen Inquiry Name: Jolynn Caldwell Age/Sex: 23/F : 2000 Unit#: [id number] Attend Dr: Yolande Silva Re04/30/24 Status: REG REF Location: HO.WFDLDS Disch: SPEC : [id number] JUNAID: 04/30/24-1241 STATUS: COMP REQ : [id number] RECD: 04/30/24-[address]: Yolande Silva COMP: 04/30/24-1533 ENTERED: 04/30/24-[address]: ORDERED: CMP, Lipid Panel, Karely, Lip, TSH Rflx Test Result Flag Reference Sodium 139 135-145 mmol/L Potassium 3.9 3.3-5.1 mmol/L CL 108 96-108 mmol/L CO2 23 22-29 mmol/L Gap 12 12-20 BUN 10 9-16 mg/dL Creat 0.60 0.5-1.4 mg/dL eGFR > 60 Chronic Kidney Disease: Estimated GFR < 60 mL/min/1.73m2 Severe Kidney Disease: Estimated GFR < 15 mL/min/1.73m2 Glucose, Random 85 60-115 mg/dL CA 9.1 8.4-10.2 mg/dL Total Bili 0.5 0.0-1.0 mg/dL AST (GOT) 19 5-31 U/L ALT (GPT) 13 0-31 U/L Protein, Total 7.4 6.5-8.0 g/dL Alb 4.2 3.5-5.0 g/dL Triglyceride 61 <150 mg/dL Desirable Triglyceride: less than 150 mg/dL Borderline High Triglyceride 150-199 mg/dL High Triglyceride: 200-499 mg/dL Very High Triglyceride: greater than or equal to 5OO mg/dL Cholesterol 127 <200 mg/dL Desirable Cholesterol: less than 200 mg/dL Borderline High Cholesterol: 200-239 mg/dL High Cholesterol: greater than 239 mg/dL LDL Calculated 83 <100 mg/dL Desirable LDL: less than 100 mg/dL Near Optimal/Above Optimal LDL: 110-129 mg/dL Borderline High LDL: 130-159 mg/dL High LDL: 160-189 mg/dL Very High LDL: greater than or equal to 190 mg/dL HDL 32 L >40 mg/dL Desirable HDL: greater than 40 mg/dL Note: This HDL assay may give artificially low results in patients with liver disease. Alk Phos 67 39-117 U/L Karely 45 28-100 U/L Lipase 19 8-78 U/L TSH 1.82 0.32-4.0 uIU/mL END OF REPORT Coding Level of Care Code Est Pt Level 3 (28240) Est Pt Prev Care 18-39y(23706) Diagnoses Encounter for general adult medical examination with abnormal findings Z00.01 Diarrhea, unspecified type R19.7 Diarrhea type: unspecified type Abdominal cramping R10.9 Cerebellar tonsillar ectopia Q04.8 Family history of breast cancer Z80.3 TABBY (generalized anxiety disorder) F41.1 Mild episode of recurrent major depressive disorder F33.0 Major depression episode severity: mild Migraine with aura and without status migrainosus, not intractable G43.109 Status migrainosus presence: without status migrainosus Intractability: not intractable Severe obesity with body mass index (BMI) of 36.0 to 36.9 with serious comorbidity E66.01; Z68.36 Vitamin B12 deficiency (non anemic) E53.8 Low HDL (under 40) E78.6 Skin cyst L72.9 Additional Codes TABBY-7 Assessment Billing - TABBY-7 Assessment Tool: TABBY-7 Assessment 63754 ([id number]) PHQ-9 - 29960 - PHQ-9 Billing: Yes ([id number]) Assessment & Plan Assessment & Plan (1) Encounter for general adult medical examination with abnormal findings: Code(s): Z00.01 - Encounter for general adult medical examination with abnormal findings (2) Diarrhea: Onset Date: Unknown Code(s): R19.7 - Diarrhea, unspecified Category: Medical Qualifiers: Diarrhea type: unspecified type Qualified Code(s): R19.7 - Diarrhea, unspecified (3) Abdominal cramping: Code(s): R10.9 - Unspecified abdominal pain Category: Medical (4) Cerebellar tonsillar ectopia: Code(s): 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 Category: Medical (5) Family history of breast cancer: Comment: maternal grandmother BRCA negative Code(s): Z80.3 - Family history of malignant neoplasm of breast Category: Medical (6) TABBY (generalized anxiety disorder): Comment: Managed by outside prescriber and counselor Code(s): F41.1 - Generalized anxiety disorder Category: Medical (7) MDD (major depressive disorder), recurrent episode: Comment: Managed by outside prescriber and counselor Code(s): F33.9 - Major depressive disorder, recurrent, unspecified Category: Medical Qualifiers: Major depression episode severity: mild Qualified Code(s): F33.0 - Major depressive disorder, recurrent, mild (8) Migraine headache with aura: Comment: Managed by [facility]. On both preventative and rescue medications. Code(s): G43.109 - Migraine with aura, not intractable, without status migrainosus Category: Medical Qualifiers: Status migrainosus presence: without status migrainosus Intractability: not intractable Qualified Code(s): G43.109 - Migraine with aura, not intractable, without status migrainosus (9) Severe obesity with body mass index (BMI) of 36.0 to 36.9 with serious comorbidity: Comment: Lifestyle modifications encouraged Code(s): E66.01 - Morbid (severe) obesity due to excess calories; Z68.36 - Body mass index [BMI] 36.0-36.9, adult Category: Medical (10) Vitamin B12 deficiency (non anemic): Code(s): E53.8 - Deficiency of other specified B group vitamins Category: Medical (11) Low HDL (under 40): Comment: encouraged physical activity life style mods Code(s): E78.6 - Lipoprotein deficiency Category: Medical (12) Skin cyst: Code(s): L72.9 - Follicular cyst of the skin and subcutaneous tissue, unspecified Category: Medical Plan . Orders: Orders H pylori Ag Stool Today R10.9 - Unspecified abdominal pain, R19.7 - Diarrhea, unspecified Comprehensive Met. Panel Today R10.9 - Unspecified abdominal pain Hepatitis A,B,C Profile Today R10.9 - Unspecified abdominal pain Amylase Today R10.9 - Unspecified abdominal pain Lipase Today R10.9 - Unspecified abdominal pain Referrals Gastroenterology Referral R10.9 - Unspecified abdominal pain, R19.7 - Diarrhea, unspecified Medications: New ondansetron HCl 4 mg PO Q8H 3 days PRN 15 tabs 0RF nausea and vomiting
[2024-04-30 11:55] VITALS: BP 112/68; PULSE 95; RESP 12; TEMP 36.2; O2SAT 98; BMI 40.6
== END 2024-04-30 12:33 | disposition home or self-care (01) ==
PROVIDERS: PCP Nurse Practitioner Family; Visit Provider Nurse Practitioner Family
DX: Z00.01 Encounter for general adult medical examination with abnormal findings (principal); R19.7 Diarrhea, unspecified; Q04.8 Other specified congenital malformations of brain; F33.0 Major depressive disorder, recurrent, mild; E66.01 Morbid (severe) obesity due to excess calories; Z68.36 Body mass index [BMI] 36.0-36.9, adult; R10.9 Unspecified abdominal pain; Z80.3 Family history of malignant neoplasm of breast; F41.1 Generalized anxiety disorder; G43.109 Migraine with aura, not intractable, without status migrainosus; E53.8 Deficiency of other specified B group vitamins; E78.6 Lipoprotein deficiency

== ENCOUNTER → 2024-04-30 11:48 | Outpatient (BNVA) | payer OTHER, SELFPAY | PROVIDERS: PCP Nurse Practitioner Family; Visit Provider Nurse Practitioner Family | DX: Z00.01 Encounter for general adult medical examination with abnormal findings (principal); R19.7 Diarrhea, unspecified; R10.9 Unspecified abdominal pain; F41.1 Generalized anxiety disorder; F33.0 Major depressive disorder, recurrent, mild; G43.109 Migraine with aura, not intractable, without status migrainosus; E66.01 Morbid (severe) obesity due to excess calories; Z68.36 Body mass index [BMI] 36.0-36.9, adult; E53.8 Deficiency of other specified B group vitamins; E78.6 Lipoprotein deficiency; L72.9 Follicular cyst of the skin and subcutaneous tissue, unspecified; Q04.8 Other specified congenital malformations of brain; Z80.3 Family history of malignant neoplasm of breast | CPT/HCPCS: 96127 ==

== ENCOUNTER 2024-04-30 12:40 | Outpatient (REF) | payer OTHER, SELFPAY ==
[2024-04-30 14:24] LABS: Hemoglobin 12.4 g/dl (12.0-16.0); Mean Corpuscular HGB Conc 33.5 g/dl (31.0-35.0); Mean Corpuscular Hemoglobin 28.4 pg (27.0-33.0); Mean Corpuscular Volume 84.7 fL (80.0-98.0); Mean Platelet Volume 12.4 fL (9.4-12.3); Platelet Count 270 X10*3/uL (160-400); Red Blood Count 4.37 X10*6/uL (4.20-5.50); Red Cell Distribution Width 12.3 % (11.0-16.0); White Blood Count 5.3 X10*3/uL (4.8-10.8)
[2024-04-30 14:41] LABS: Estimated Average Glucose 97 mg/dL; Hemoglobin A1C 102.1436 umol/L; Total Hemoglobin (HGBA1C) 3310.2795 umol/L
[2024-04-30 15:16] LABS: Alanine Aminotransferase 13 U/L (0-31); Albumin Level 4.2 g/dL (3.5-5.0); Alkaline Phosphatase 67 U/L (39-117); Amylase 45 U/L (28-100); Anion Gap 12 (12-20); Aspartate Amino Transferase 19 U/L (5-31); Bilirubin Total 0.5 mg/dL (0.0-1.0); Blood Urea Nitrogen 10 mg/dL (9-16); Calcium 9.1 mg/dL (8.4-10.2); Carbon Dioxide 23 mmol/L (22-29); Chloride 108 mmol/L (96-108); Cholesterol 127 mg/dL (<200); Estimated Glomerular Filt Rate > 60; Glucose Random 85 mg/dL (60-115); HDL Cholesterol 32 mg/dL (>40); LDL Cholesterol Calculated 83 mg/dL (<100); Lipase 19 U/L (8-78); Potassium 3.9 mmol/L (3.3-5.1); Sodium 139 mmol/L (135-145); Total Protein 7.4 g/dL (6.5-8.0); Triglycerides 61 mg/dL (<150)
[2024-04-30 15:32] LABS: Folate 9.2 ng/mL (> or = 4.0); Vitamin B12 277 pg/mL (200-900)
[2024-04-30 15:34] LABS: TSH reflex Free T4 1.82 uIU/mL (0.32-4.0)
[2024-05-01 08:23] LABS: HBS Num1 4.05 mIU/mL (0-7.99); HBc Num1 0.29 S/CO (0.00-0.79); HBsAGNum1 0.35 S/CO (0.00-0.99); Hepatitis A Antibody IgM 0.18 Index (0-0.79); Hepatitis B Core Antibody Nonreactive (Nonreactive); Hepatitis B Surface Antigen Negative (Negative); ~HepC Num1 0.16 S/CO (0.00-0.79); ~Hepatitis A Antibody IgM Nonreactive (Nonreactive); ~Hepatitis B Surface Antibody NONREACTIVE (Nonreactive); ~Hepatitis C Antibody Nonreactive (Nonreactive)
[2024-05-04 00:58] LABS: VITAMIN D (1,25 OH) D3 51 pg/mL; Vit D (1,25-Dihydroxy) Total 51 pg/mL (18-72); Vitamin D (1,25 OH) D2 <8 pg/mL
== END 2024-04-30 12:41 | disposition home or self-care (01) ==
LOC: HO.WFDLDS 12:40
PROVIDERS: Visit Provider Nurse Practitioner Family
DX: Z00.00 Encounter for general adult medical examination without abnormal findings (principal); E53.8 Deficiency of other specified B group vitamins; R10.9 Unspecified abdominal pain
CPT/HCPCS: 36415; 80053; 80061; 82150; 82607; 82652; 82746; 83036; 83690; 84443; 85027; 86704; 86706; 86709; 86803; 87340

== ENCOUNTER 2024-05-01 15:34 | Outpatient (AMB) | payer OTHER, SELFPAY ==
[2024-05-01 15:36] VITALS: BMI 40.6
--- NOTE | 2024-05-01 15:36 | MHC.OFFVIS ---
Vital Signs 05/01/24 15:36 Height 5 ft Weight 208 lb BMI 40.6 Intake Visit Reasons: Botox Intake Note: patient here for botox injection. Practice supplied Allergies amitriptyline [AMITRIPTYLINE] Adverse Reaction (Severe, Verified 05/01/24 15:39) SUICIDAL IDEATION, suicidal Medication List - Last Reconciled 05/01/24 by Emy Solorio MD bupropion HCl XL 150 mg PO DAILY bupropion HCl XL 450 mg PO DAILY candesartan 8 mg (2 x 4 mg) PO DAILY 90 days etonogestrel (Nexplanon) subdermal hydroxyzine HCl mg PO PRN onabotulinumtoxinA (Botox) 200 units IM ONCE 12 weeks ondansetron HCl 4 mg PO Q8H PRN 3 days sumatriptan succinate 50 - 100 mg orally at onset of headache, may repeat in 2 hrs PRN; max 2 tabs per day or 4 tabs/week (may take with Ibuprofen) 30 days HPI Comments Details: ? 23y/o female comes for treatment of migraines with botox. ??? Most frequent reported adverse reactions following injection of botox for chronic migraine include neck pain (9%), headache(5%), eyelid ptosis(4%), migraine(4%), muscular weakness(4%), musculuskeletal stiffness(4%), bronchitis(3%), injection site pain (3%), musculoskeletal pain(3%), myalgia(3%), facial paresis(2%), HTN(2%) and muscle spasms(2%) were discussed in detail. ??? Botulinum toxin typeA 200units Lot no [id number] C4 exp 05/2026 was diluted with 4 cc of normal saline . ??? Muscles injected- ??? Frontalis 4 sites ??? Procerus 1 site ??? Professor Of Rhetoric- 2 sites ??? Temporalis- 8 sites ??? Occipitalis- 6 sites ??? Cervical paraspinals- 4 sites ??? Trapezius- 6 sites- 10 units each ??? 5 units each in 31 site ??? Total use- 185units ??? 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 Sexual orientation: Straight/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 Gender identity: Female Cognitive needs: No Hearing needs: No Vision needs: No Female Reproductive History Menstrual Age of Menarche: 9 Physical Exam Vital Signs: BMI result Body Mass Index 40.6 Const General: cooperative and no acute distress Orientation/consciousness: patient oriented x3 Resp Effort & Inspection: normal respiratory effort and able to speak in complete sentences Neuro General: patient oriented x3 Cranial nerves: Yes CN's II-XII intact bilaterally Cognition (Neuro): normal cognition Psych Appearance: grossly normal Mental Status: mental status grossly normal Speech and movement: Normal speech and movement present Affect: normal affect Attitude: cooperative Office Procedures Botulinum toxin Injection 16516 - Migraine Procedure code (CPT) selection complete Office Meds onabotulinumtoxinA 200 unit solution for injection Performing Provider: Emy Solorio MD Performing Location: [facility] Administered by: Emy Solorio MD on 05/01/24 15:55 Dose Route Admin Location Dispensed Lot Number Expiration Date [facility] Weight Reduction Specialist 185 unit subcut 200 units [id number] ALLERGAN/BOTOX Comments: see hpi Assessment & Plan Assessment & Plan (1) Chronic migraine without aura: Comment: Code(s): G43.709 - Chronic migraine without aura, not intractable, without status migrainosus Category: Medical Qualifiers: Status migrainosus presence: without status migrainosus Intractability: intractable Qualified Code(s): G43.719 - Chronic migraine without aura, intractable, without status migrainosus Plan Patient tolerated the procedure well. she will call with any side effects Orders: Orders AMB Botulinum toxin Injection Today G43.109 - Migraine with aura, not intractable, without status migrainosus Medications: New onabotulinumtoxinA 200 units subcut ONCE 1 ea 0RF migraine G43.109 - Migraine with aura, not intractable, without status migrainosus Coding Level of Care Code Est Pt Level 1 (92130) Diagnoses Intractable chronic migraine without aura and without status migrainosus G43.719 Status migrainosus presence: without status migrainosus Intractability: intractable CPT Codes Botox Injection - Botox 3: 57259 - Migraine ([id number])
== END 2024-05-01 15:56 | disposition home or self-care (01) ==
PROVIDERS: PCP Nurse Practitioner Family; Visit Provider Psychiatry & Neurology Neurology
DX: G43.719 Chronic migraine without aura, intractable, without status migrainosus (principal)
CPT/HCPCS: 64615

== ENCOUNTER → 2024-05-01 15:34 | Outpatient (BNVA) | payer OTHER, SELFPAY | PROVIDERS: PCP Nurse Practitioner Family; Visit Provider Psychiatry & Neurology Neurology | DX: G43.E19 Chronic migraine with aura, intractable, without status migrainosus (principal) | CPT/HCPCS: 64615; 99211; J0585 ==

== ENCOUNTER 2024-05-04 12:51 | Outpatient (REF) | payer OTHER, SELFPAY ==
[2024-05-04 18:09] LABS: Bacterial Vaginosis PCR NEGATIVE (Negative); Candida Group PCR DETECTED (Not Detect); Candida glab krusei PCR NOT DETECTED (Not Detect); Trichomonas vaginalis PCR NOT DETECTED (Not Detect)
[2024-05-04 18:40] LABS: CT PCR NOT DETECTED (Not Detect.); NG PCR NOT DETECTED (Not Detect.)
== END 2024-05-04 12:52 | disposition home or self-care (01) ==
LOC: HO.LNP 12:51
PROVIDERS: PCP Nurse Practitioner Family; Visit Provider Advanced Practice Midwife
DX: B37.31 Acute candidiasis of vulva and vagina (principal)
CPT/HCPCS: 81515; 87491; 87591

== ENCOUNTER 2024-05-04 12:51 | Outpatient (AMB) | payer OTHER, SELFPAY ==
[2024-05-04 13:18] VITALS: BMI 40.6
--- NOTE | 2024-05-04 13:18 | MHC.OFFVIS ---
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 Information Interpreted: non-clinical & clinical Head Bucker: Head Bucker Present (Shonna Michaud) Accompanied by: Self / Same As Patient Allergies amitriptyline [AMITRIPTYLINE] Adverse Reaction (Severe, Verified 05/04/24 13:19) SUICIDAL IDEATION, suicidal Medication List - Last Reconciled 05/04/24 by Donna Mg CNM bupropion HCl XL 150 mg PO DAILY bupropion HCl XL 450 mg PO DAILY candesartan 8 mg (2 x 4 mg) PO DAILY 90 days cephalexin 500 mg PO BID etonogestrel (Nexplanon) subdermal hydroxyzine HCl mg PO PRN onabotulinumtoxinA (Botox) 200 units IM ONCE 12 weeks ondansetron HCl 4 mg PO Q8H PRN 3 days sumatriptan succinate 50 - 100 mg orally at onset of headache, may repeat in 2 hrs PRN; max 2 tabs per day or 4 tabs/week (may take with Ibuprofen) 30 days Is last menstrual period known: Yes Last menstrual period: 04/18/24 HPI HPI vaginal discharge: Details: Patient is complaining of vaginal itch for about 3 days she has been on cephalexin for a infection of a cyst on her chest that was a whole lot worse she is almost done with the antibiotics now but she started getting vaginal itching about 3 if days ago. Use boric acid a couple of evenings ago hoping it would help but it did not quite help enough. COUNTS INCLUDE 234 BEDS AT THE [facility] Medical History Difficulty sleeping Visual snow syndrome Cerebellar tonsillar ectopia Hx of migraine headaches History of depression Surgical History No pertinent past surgical history Family History Maternal Grandmother History of breast cancer BRCA negative Mother Depression Father Diabetes Social History Housing: Apartment Alcohol intake: current Alcohol intake frequency: a few times a month Patient Tobacco Use Status: Never used Tobacco e-Cigarette/Vaping Use: Never Used Substance Use Type: Marijuana service: No Current occupational status: employed 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 External Female Exam: normal external appearance and normal appearance of the urethra Speculum Exam - Vagina: normal appearance of the vagina and normal vaginal discharge Speculum Exam - Cervix: normal appearance of the cervix and Cervical os closed Results Reviewed Results Reviewed: Name: Jolynn Caldwell Age/Sex: 22/F Attending: Mamta Pace CNM : 2000 Submitted by: Mamta Pace CNM Copies to: Yolande Silva- MR #: [id number] Status: DEP REF Collected: 04/26/23 Location: [facility] Received: 04/27/23 Interpretation Satisfactory for evaluation. Negative for intraepithelial lesion or malignancy. Clinical Information LMP: Nexplanon Previous PAP test: 2020, WNL Material Received ThinPrep-Cervical Copies To Mamta Pace [address] [place], [place] [id number] Yolande Silva [facility]- [address] [place], [place] [id number] [email or web address] Electronically Signed By: GUSTAVO Hernadez (ASC) 05/09/23 0917 The Pap Test is a screening procedure with the inherent possibility of both false negative and false positive results. Results should be interpreted in the context of historic and current clinical findings. Reliability of the Pap Test is enhanced by performing the test on a regular repetitive basis. Patient: Jolynn Caldwell Age/Sex: 22/F MR#: Assessment & Plan Assessment & Plan (1) Nexplanon in place: Code(s): Z97.5 - Presence of (intrauterine) contraceptive device Category: Social Hx (2) Yeast infection of the vagina: Comment: s/p use of cephalexin, prefers diflucan rx... Code(s): B37.31 - Acute candidiasis of vulva and vagina Category: Medical Plan Reviewed with her that is very common to get a yeast infection after using cephalexin or ampicillin or its analogs. She prefers the Diflucan treatment rather than the cream though I did tell her that [id number] Monistat 7 can be very helpful but she really just wants the pill treatment. She is nearing the end of her course of antibiotics and the infected cyst or boil she had on her chest is practically better she is almost near the treatment anyway. 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 Medications: New fluconazole may repeat second dose 72 hrs after first dose if symptoms persist 150 mg PO Q3D 2 doses 2 tabs 1RF Coding Level of Care Code Est Pt Level 3 (48193) Diagnoses Nexplanon in place Z97.5 Yeast infection of the vagina B37.31
== END 2024-05-04 13:39 | disposition home or self-care (01) ==
LOC: HO.HWSM 12:51
PROVIDERS: PCP Nurse Practitioner Family; Visit Provider Advanced Practice Midwife
DX: Z97.5 Presence of (intrauterine) contraceptive device (principal); B37.31 Acute candidiasis of vulva and vagina
CPT/HCPCS: 99213

== ENCOUNTER 2024-07-04 12:56 | Outpatient (AMB) | payer OTHER, SELFPAY ==
--- NOTE | 2024-07-04 13:08 | A.OFFVIS_ITS ---
Vital Signs 07/04/24 13:09 Height 5 ft Weight 201 lb BMI 39.3 BP 120/68 Blood Pressure Location Rt brachial Position Sitting Pulse 93 Pulse Source Pulse Oximeter Pulse Oximetry (%) 98 Oxygen Delivery Method Room Air Intake Visit Reasons: 6 month f/u Intake Note: Patient presents month follow up for migraines. 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 Accompanied by: Self / Same As Patient Allergies amitriptyline [AMITRIPTYLINE] Adverse Reaction (Severe, Verified 07/04/24 13:11) SUICIDAL IDEATION, suicidal Medication List - Last Reconciled 07/04/24 by FEDE Russell bupropion HCl XL 150 mg PO DAILY bupropion HCl XL 450 mg PO DAILY candesartan 8 mg (2 x 4 mg) PO DAILY 90 days cephalexin 500 mg PO BID clonidine HCl 0.1 mg PO BEDTIME etonogestrel (Nexplanon) subdermal fluconazole 150 mg PO Q3D 2 doses hydroxyzine HCl mg PO PRN onabotulinumtoxinA (Botox) 200 units IM ONCE 12 weeks ondansetron HCl 4 mg PO Q8H PRN 3 days sumatriptan succinate 50 - 100 mg orally at onset of headache, may repeat in 2 hrs PRN; max 2 tabs per day or 4 tabs/week (may take with Ibuprofen) 30 days HPI Comments Details: 23-yr-old female presents for f/u visit of migraine and visual symptoms. Pt denies any significant interval medical changes. Pt reports she continues to have daily headache, which had subsided in intensity and frequency of more severe attacks, however however recently having more frequent stronger attacks again. She has been having more neck and shoulder pain, and recently reached out to us to request referral back for PT as this was previously helpful. She will be starting PT again soon. She is having the episodes of eye movement and visual snow again. She has started Botox, which is had some benefit, however there was a delay between doses, which may have limited full efficacy. She started candesartan up to 8 mg per day, she is unsure of effectiveness at this point. Denies lightheadedness or adverse effect. Has not taken her oral sumatriptan in some time, states that she often just wakes up with a migraine attack. She notes that she could be stressed at times, related to work and school. She is in school right now completing a grad program for master's in social work- plan is to complete this in June 2025. Baseline Migraine headache characteristics: Denies aura. Daily headache: mild-moderate throbbing, sometimes pressure, frontal and sometimes postoccipital. Migraine headache: Severe throbbing, sometimes pressure, frontal, and postoccipital pain a/w some photophobia and phonophobia, osmophobia, nausea, brain fog, possibly at times her arms can have pins and needles, activity intolerance- unable to do her daily activities. Laugh induced headache: A discomfort that starts in the bilateral neck, rushes up to bilateral frontal region where the pain starts throbbing. This lasts a few seconds. Sometimes, but not always, a low-level headache may follow this. This specific headache is always triggered by laughing. Brain MRA 2022- normal. 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 Sexual orientation: Straight/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 Gender identity: Female Cognitive needs: No Hearing needs: No Vision needs: No Female Reproductive History Menstrual Age of Menarche: 9 Physical Exam Vital Signs: Last Vital Signs Pulse 93 07/04/24 13:09 BP 120/68 07/04/24 13:09 Pulse Ox 98 07/04/24 13:09 Oxygen Delivery Method Room Air 07/04/24 13:09 BMI result Body Mass Index 39.3 Const General: cooperative and no acute distress Orientation/consciousness: patient oriented x3 Resp Effort & Inspection: normal respiratory effort and able to speak in complete sentences Neuro General: patient oriented x3 Cranial nerves: Yes CN's II-XII intact bilaterally Cognition (Neuro): normal cognition Psych Appearance: grossly normal Mental Status: mental status grossly normal Speech and movement: Normal speech and movement present Affect: normal affect Attitude: cooperative Assessment & Plan Assessment & Plan (1) Chronic migraine without aura: Comment: Code(s): G43.709 - Chronic migraine without aura, not intractable, without status migrainosus Category: Medical Qualifiers: Status migrainosus presence: without status migrainosus Intractability: intractable Qualified Code(s): G43.719 - Chronic migraine without aura, intractable, without status migrainosus Plan: The International Classification of Headache Disorders 3rd edition 1.1 Migraine without aura Previously used terms: Common migraine; hemicrania simplex. Description: Recurrent headache disorder manifesting in attacks lasting 4-72 hours. Typical characteristics of the headache are unilateral location, pulsating quality, moderate or severe intensity, aggravation by routine physical activity and association with nausea and/or photophobia and phonophobia. Diagnostic criteria: * At least five attacks1?fulfilling criteria B-D * Headache attacks lasting 4-72 hr (untreated or unsuccessfully treated)2;3 * Headache has at least two of the following four characteristics: * unilateral location * pulsating quality * moderate or severe pain intensity * aggravation by or causing avoidance of routine physical activity (eg, walking or climbing stairs) * During headache at least one of the following: * nausea and/or vomiting * photophobia and phonophobia * Not better accounted for by another ICHD-3 diagnosis. 1.3 Chronic migraine Description: Headache occurring on 15 or more days/month for more than 3 months, which, on at least 8 days/month, has the features of migraine headache. Diagnostic criteria: * Headache (migraine-like or [id number]) on >=5 days/month for >3 months , and fulfilling criteria B and C * Occurring in a patient who has had at least five attacks fulfilling criteria B-D for 1.1?Migraine without aura?and/or criteria B and C for 1.2?Migraine with aura * On >8 days/month for >3 months, fulfilling any of the following2: * criteria C and D for 1.1?Migraine without aura * criteria B and C for 1.2?Migraine with aura * believed by the patient to be migraine at onset and relieved by a triptan or ergot derivative * Not better accounted for by another ICHD-3 diagnosis3;4;5. Reference: [email or web address]://[email or web address]-[email or web address]-qpkddmsq-without-aura/ [email or web address]://[email or web address].org/1-migraine/9-9-dufxfpb-migraine/ (2) Cervicalgia: Code(s): M54.2 - Cervicalgia Category: Medical (3) Visual snow syndrome: Code(s): H53.19 - Other subjective visual disturbances Category: Medical Plan HST no evidence of sleep apnea- if sleep worsens consider in-lab PSG. For cervicalgia: ? Resume PT for cervicalgia/migraine. For overall migraine treatment: Information shared on nonpharmacological and behavioral headache treatment interventions. For acute headache treatment: Sumatriptan 50-100mg prn. Trials sumatriptan 6 mg subQ at onset of severe migraine or with migraine present upon awakening in the morning, may repeat x1 after 1 hour. Max of 2 doses per day. May take w/ OTC Ibuprofen or Naproxen. Future considerations: DHE ? For chronic migraine w/o aura prevention medication: Continue Riboflavin 400mg qam Increase Candesartan from 8 mg to 16 mg daily Continue Botox 155 units IM q 12 weeks- as pt has had good effect from use. Previous preventive migraine trials: Amitriptyline- caused SI. Topiramate- ineffective. Propranolol- nightmares and weight gain. Magnesium- not tolerated. Ajovy 225mg sc q month- not effective and not tolerated. Note- Aimovig was never tried d/t denied by her insurance plan. Follow-up in 6 months or sooner w/ worsening s/s. Coding Level of Care Code Est Pt Level 4 (10634) Diagnoses Intractable chronic migraine without aura and without status migrainosus G43.719 Status migrainosus presence: without status migrainosus Intractability: intractable Cervicalgia M54.2 Visual snow syndrome H53.19
[2024-07-04 13:09] VITALS: BP 120/68; PULSE 93; O2SAT 98; BMI 39.3
== END 2024-07-04 13:54 | disposition home or self-care (01) ==
LOC: HO.HSMS 12:57
PROVIDERS: PCP Nurse Practitioner Family; Visit Provider Nurse Practitioner Family
DX: G43.719 Chronic migraine without aura, intractable, without status migrainosus (principal); M54.2 Cervicalgia; H53.19 Other subjective visual disturbances
CPT/HCPCS: 99214

== ENCOUNTER → 2024-07-04 12:56 | Outpatient (BNVA) | payer OTHER, SELFPAY | PROVIDERS: PCP Nurse Practitioner Family; Visit Provider Nurse Practitioner Family ==

== ENCOUNTER 2024-07-25 12:52 | Outpatient (REF) | payer OTHER, SELFPAY | END 2024-07-25 12:53 | disposition home or self-care (01) | LOC: HO.LNP 12:52 | PROVIDERS: PCP Nurse Practitioner Family; Visit Provider Nurse Practitioner Family | DX: R19.7 Diarrhea, unspecified (principal); R10.9 Unspecified abdominal pain; R11.0 Nausea; K44.9 Diaphragmatic hernia without obstruction or gangrene; N92.0 Excessive and frequent menstruation with regular cycle; K21.9 Gastro-esophageal reflux disease without esophagitis; R19.5 Other fecal abnormalities | CPT/HCPCS: 87338; 96127 ==

== ENCOUNTER 2024-07-25 12:52 | Outpatient (AMB) | payer OTHER, SELFPAY ==
--- NOTE | 2024-07-25 12:55 | A.OFFPC_ITS ---
Vital Signs 07/25/24 13:07 Height 5 ft Weight 199 lb BMI 38.9 BP 118/68 Blood Pressure Location Rt brachial Position Sitting Respiration 12 Pulse 100 Pulse Source Pulse Oximeter Temp 97.2 F Temp Source Oral Pulse Oximetry (%) 97 Oxygen Delivery Method Room Air Intake Visit Reasons: nausea Intake Note: Patient c/o abd px, nauseas, constipation, and diarrhea since april. Etcher Photoengraving Required: No Is last menstrual period known: Yes (Started yesterday) Last menstrual period: 07/24/24 Allergies amitriptyline [AMITRIPTYLINE] Adverse Reaction (Severe, Verified 07/25/24 13:24) SUICIDAL IDEATION, suicidal Medication List - Last Reconciled 07/25/24 by Yolande Silva, HVAC SERVICES PROFESSIONAL- bupropion HCl XL 150 mg PO DAILY bupropion HCl XL 450 mg PO DAILY candesartan 16 mg PO DAILY 30 days clonidine HCl 0.1 mg PO BEDTIME etonogestrel (Nexplanon) subdermal hydroxyzine HCl mg PO PRN onabotulinumtoxinA (Botox) 200 units IM ONCE 12 weeks ondansetron HCl 4 mg PO Q8H PRN 3 days sumatriptan succinate 50 - 100 mg orally at onset of headache, may repeat in 2 hrs PRN; max 2 tabs per day or 4 tabs/week (may take with Ibuprofen) 30 days sumatriptan succinate 6 mg subcutaneously at onset of migraine, may reapt in 1 hr PRN; 30 days Tobacco use date assessed: 07/25/24 Dental Screening Dental Screen Date: 07/25/24 Did you have a dental visit in the last 12 months?: No Did you have a dental problem in the last 6 months where you did not have access to dental care?: No Was dental information given to patient?: Patient has dentist HPI HPI Comments History of Present Illness Details 23-year-old female with GERD, MDD, migra ine headaches with visual aura, cerebellar tonsillar ectopia, obesity, b12 def 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 No surgery recommendation. Do not get spinal tap/LP. 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 - Nausea ongoing for years, worse since April, relieved by Zofran, unrelated to GERD. - History of hiatal hernia; concerns abo ut worsening. - Intermittent abdominal cramping, exace rbated by trigger foods. - Recent history of heavier menstrual bl eeding with clots, started 2 months ago.On period now. - Denies fever, chills, normal urination , fluctuating bowel movements. - Past colonoscopy in 2020 with EGD. Hx of elevated fecal calprotectin w/ negative colon to follow. she was referred to [facility] [place] [facility] 04/2024; she has not heard about an appt yet; i sent a request to the office to f/u. - she submitted stool for h pylori today . labs from 04/2024 reviewed & wnl Review of Systems - Gastrointestinal: Reports chronic naus ea, abdominal cramping, GERD, fluctuating bowel movements. Denies vomiting, diarrhea. - Genitourinary: Reports heavier menstru al bleeding with clots. Denies dysuria. - Constitutional: Denies fever, chills. - Skin: Denies yellowing of skin. Physical Exam Awake alert NAD Scleras nonicteric bilat MM dry RRR LS CTAB No CVAT Abd soft, tender over epigastrum w/o rebound, with no masses or organomegaly noted. No hernias are noted. BS WNL x 4 quads Skin PWD Results - Labs: Elevated fecal calprotectin, neg ative H. pylori. - Tests: Past pelvic ultrasound (2022) s howing ovarian cysts. - Diagnostics: Colonoscopy (2020) with c hronic findings, no active disease. Discussion Notes I discussed with the patient the likelihood of her symptoms being related to her chronic conditions such as the hiatal hernia and GERD. We reviewed the benefits of obtaining a CT scan of the abdomen and pelvis to further assess her symptoms while we await GI consultation. I explained the potential need for an upper endoscopy to better evaluate the hiatal hernia. We also discussed her menstrual symptoms and the importance of monitoring these changes. I recommended a follow- up with GI and emphasized the need for imaging while waiting for GI evaluation. I refilled her prescription for Zofran to manage her nausea. The patient was advised to monitor her symptoms and contact the office if there are any changes or concerns. Assessment and Plan 1. Chronic Nausea - CT scan consideration - Continue Zofran - Await GI evaluation - will cancel CT if H pylori is + 2. Hiatal Hernia - Potential upper endoscopy - Monitor symptoms 3. GERD - Continue Tums - Monitor triggers 4. Ovarian Cyst - Review ultrasound - Monitor symptoms 5. Heavy Menstrual Bleeding - Monitor symptoms - Consider gynecological evaluation 6. IBS - Monitor bowel patterns - Await GI evaluation Patient Instructions - Continue taking Zofran as prescribed f or nausea. - Monitor and avoid dietary triggers, es pecially dairy. - Keep a log of menstrual flow and repor t any significant changes. - Follow up with GI as soon as the appoi ntment is scheduled. - Contact the office if symptoms worsen or new symptoms arise. Consent Patient was informed and verbally consented to the use of an ambient scribe for clinic note documentation during this visit. Total time spent caring for the patient today was 35 minutes. This includes time spent before the visit reviewing the chart, time spent during the visit, and time spent after the visit on documentation, reviewing laboratory results, diagnostic imaging, medications, performing a medically necessary evaluation, counseling on diagnoses, care coordination, ordering appropriate tests, ordering appropriate medications, review of tests performed by other providers, reporting test results with the patient, communication with other healthcare providers. 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 1. Little interest or pleasure in doing things: not at all 2. Feeling down, depressed, or hopeless: not at all 3. Trouble falling or staying asleep, or sleeping too much: not at all 4. Feeling tired or having little energy: not at all 5. Poor appetite or overeating: not at all 6. Feeling bad about yourself - or that you are a failure or have let yourself or your family down: not at all 7. Trouble concentrating on things, such as reading the newspaper or watching television: not at all 8. Moving or speaking so slowly that other people could have noticed. Or the opposite - being so fidgety or restless that you have been moving around a lot more than usual: not at all 9. Thoughts that you would be better off or of hurting yourself in some way: not at all Total score: 0 Depression Screening Interpretation: Negative Depression Screening Done: Yes 54513 - PHQ-9 Billing: Yes Source: Developed by Drs. Donal Rodriguez, Ceci Harrison, Phillip Schofield and colleagues, with an educational kadi from [employer]. Thrive Questionnaire Date Thrive assessed: 07/25/24 I am a: Patient What is your living situation today?: I have a steady place to live Within the past 12 months, did the food you bought not last and you didn't have the money to get more?: Never true Within the past 12 months, did you worry whether your food would run out before you got money to buy more?: Never true Do you have trouble paying for medicines?: No Do you have trouble getting transportation to medical appointments?: No Do you have trouble paying your heating and electricity bill?: No Do you have trouble taking care of your child, family member or friend?: No Do you have trouble with day-to-day activities such as bathing, preparing meals, shopping, managing finances, etc.?: No Are you currently unemployed and looking for a job?: No Are you interested in more education?: No Please select the resources that you would like help with: None Currently or been in a relationship where the following occur: No concerns reported THRIVE Score: 0 TABBY-7 AMB Questionnaire TABBY-7 Date TABBY - 7 assessed: 07/25/24 Feeling nervous, anxious, or on edge: 0 = Not at all Not being able to stop or control worryin = Not at all Worrying too much about different things: 0 = Not at all Trouble relaxin = Not at all Being so restless that it is hard to sit still: 0 = Not at all Becoming easily annoyed or irritable: 0 = Not at all Feeling afraid as if something awful might happen: 0 = Not at all Total TABBY-7 score (0-4 normal; 5-9 mild; 10-14 moderate; 15-21 severe): 0 Source: Developed by Drs. Donal Rodriguez, Ceci Harrison, Phillip Schofield and colleagues, with an educational kadi from [employer]. TABBY-7 Assessment Billing TABBY-7 Assessment Tool: TABBY-7 Assessment 79162 Physical exam (Primary Care) Vital Signs: Last Vital Signs Temp 97.2 F 07/25/24 13:07 Pulse 100 07/25/24 13:07 Resp 12 07/25/24 13:07 BP 118/68 07/25/24 13:07 Pulse Ox 97 07/25/24 13:07 Oxygen Delivery Method Room Air 07/25/24 13:07 BMI result Body Mass Index 38.9 Tobacco/Smoking Status: Tobacco use Status Tobacco use date assessed 07/25/24 07/25/24 12:58 Patient Tobacco Use Status Never used Tobacco 07/25/24 12:58 e-Cigarette/Vaping Use Never Used 07/25/24 12:58 PHQ-9: PHQ-9 Score PHQ-9: Total score 0 07/25/24 13:29 Depression Screening Interpretation: Negative Thrive Assessment: Date of Thrive Assessment Date Thrive assessed 07/25/24 07/25/24 12:58 Currently or been in a relationship where the following occur: No concerns reported Coding Level of Care Code Est Pt Level 4 (60177) Complex EM visit Add On G2211 Diagnoses Diarrhea, unspecified type R19.7 Diarrhea type: unspecified type Abdominal cramping R10.9 Nausea R11.0 Hiatal hernia K44.9 Menorrhagia with regular cycle N92.0 Menorrhagia type: with regular cycle Gastroesophageal reflux disease without esophagitis K21.9 Esophagitis presence: without esophagitis Elevated fecal calprotectin R19.5 Additional Codes TABBY-7 Assessment Billing - TABBY-7 Assessment Tool: TABBY-7 Assessment 02625 ([id number]) PHQ-9 - 16585 - PHQ-9 Billing: Yes ([id number]) Assessment & Plan Assessment & Plan (1) Diarrhea: Onset Date: Unknown Code(s): R19.7 - Diarrhea, unspecified Category: Medical Qualifiers: Diarrhea type: unspecified type Qualified Code(s): R19.7 - Diarrhea, unspecified (2) Abdominal cramping: Code(s): R10.9 - Unspecified abdominal pain Category: Medical (3) Nausea: Code(s): R11.0 - Nausea Category: Medical (4) Hiatal hernia: Code(s): K44.9 - Diaphragmatic hernia without obstruction or gangrene Category: Medical (5) Menorrhagia: Code(s): N92.0 - Excessive and frequent menstruation with regular cycle Category: Medical Qualifiers: Menorrhagia type: with regular cycle Qualified Code(s): N92.0 - Excessive and frequent menstruation with regular cycle (6) GERD (gastroesophageal reflux disease): Code(s): K21.9 - Gastro-esophageal reflux disease without esophagitis Category: Medical Qualifiers: Esophagitis presence: without esophagitis Qualified Code(s): K21.9 - Gastro-esophageal reflux disease without esophagitis (7) Elevated fecal calprotectin: Onset Date: 2020 Comment: WITH NEGATIVE COLON 2020 Code(s): R19.5 - Other fecal abnormalities Category: Medical Plan . Orders: Orders CT abdomen pelvis wo IV con Today K44.9 - Diaphragmatic hernia without obstruction or gangrene, R10.9 - Unspecified abdominal pain, R11.0 - Nausea, R19.7 - Diarrhea, unspecified Medications: Refilled ondansetron HCl 4 mg PO Q8H PRN 15 tabs 3RF nausea and vomiting 3 days
[2024-07-25 13:07] VITALS: BP 118/68; PULSE 100; RESP 12; TEMP 36.2; O2SAT 97; BMI 38.9
== END 2024-07-25 13:46 | disposition home or self-care (01) ==
LOC: HO.HMCFM 12:53
PROVIDERS: PCP Nurse Practitioner Family; Visit Provider Nurse Practitioner Family
DX: R19.7 Diarrhea, unspecified (principal); R10.9 Unspecified abdominal pain; R11.0 Nausea; K44.9 Diaphragmatic hernia without obstruction or gangrene; N92.0 Excessive and frequent menstruation with regular cycle; K21.9 Gastro-esophageal reflux disease without esophagitis; R19.5 Other fecal abnormalities

== ENCOUNTER 2024-08-01 09:27 | Outpatient (REF) | payer OTHER, SELFPAY ==
--- NOTE | ~2024-08-01 | XR_ITS ---
EXAMINATION: XR CHEST 2 VIEWS HISTORY: R63.4 - Abnormal weight loss COMPARISON: There are no prior studies available for comparison. FINDINGS: PA and lateral views of the chest are submitted. The lungs are expanded and clear. There is no pleural effusion, pneumothorax, or pulmonary vascular congestion. The heart is normal in size. The bones are intact. XR/XR chest 2V IMPRESSION: Normal examination of the chest. Electronically signed by: Donal Pickard MD 08/02/2024 07:00 AM EDT
[2024-08-01 12:46] LABS: Anion Gap 14 (12-20); Blood Urea Nitrogen 10 mg/dL (9-16); C Reactive Protein 0.73 mg/dL (< or = 0.50); Calcium 9.6 mg/dL (8.4-10.2); Carbon Dioxide 25 mmol/L (22-29); Chloride 107 mmol/L (96-108); Estimated Glomerular Filt Rate > 60; Glucose Random 90 mg/dL (60-115); Potassium 3.7 mmol/L (3.3-5.1); Sodium 142 mmol/L (135-145)
== END 2024-08-01 09:28 | disposition home or self-care (01) ==
LOC: HO.LAB 09:27
PROVIDERS: PCP Nurse Practitioner Family; Visit Provider Nurse Practitioner Family
DX: Z01.812 Encounter for preprocedural laboratory examination (principal); R63.4 Abnormal weight loss; R10.9 Unspecified abdominal pain
CPT/HCPCS: 36415; 71046; 80048; 86140

== ENCOUNTER 2024-08-01 09:27 | Outpatient (AMB) | payer OTHER, SELFPAY ==
[2024-08-01 09:43] VITALS: BP 92/66; PULSE 99; O2SAT 96; BMI 38.9
--- NOTE | 2024-08-01 09:43 | MHC.OFFVIS ---
Vital Signs 08/01/24 09:43 Height 5 ft Weight 199 lb BMI 38.9 BP 92/66 Blood Pressure Location Lt brachial Position Sitting Pulse 99 Pulse Oximetry (%) 96 Oxygen Delivery Method Room Air Intake Visit Reasons: abd pain, diarrhea Intake Note: Patient new consult for abdominal pain and diarrhea. Patient cc: abdominal pain with diarrhea and nauseas on and off also heartburn. Hematology Supervisor Required: No Allergies amitriptyline [AMITRIPTYLINE] Adverse Reaction (Severe, Verified 08/01/24 09:42) SUICIDAL IDEATION, suicidal Medication List - Last Reconciled 08/01/24 by Mellissa Aguilar CNP bupropion HCl XL 150 mg PO DAILY bupropion HCl XL 450 mg PO DAILY candesartan 16 mg PO DAILY 30 days clonidine HCl 0.1 mg PO BEDTIME etonogestrel (Nexplanon) subdermal loratadine 10 mg PO DAILY onabotulinumtoxinA (Botox) 200 units IM ONCE 12 weeks ondansetron HCl 4 mg PO Q8H PRN 3 days sumatriptan succinate 50 - 100 mg orally at onset of headache, may repeat in 2 hrs PRN; max 2 tabs per day or 4 tabs/week (may take with Ibuprofen) 30 days sumatriptan succinate 6 mg subcutaneously at onset of migraine, may reapt in 1 hr PRN; 30 days HPI HPI abd pain, diarrhea: Details: Patient is a 23-year-old female with PMH of GERD, MDD, migraines, obesity and vitamin-B 12 deficiency. Referred by PCP for further evaluation of abdominal pain and nausea. Jolynn presents with abdominal pain, diarrhea, and nausea that started in April 2024. These symptoms are recurrent, having first occurred in 2020, at which time a colonoscopy and an endoscopy completed at [facility] showed a hiatal hernia and inflammation. Jolynn reports that the pain is primarily located in the upper/middle abdominal area and can occur independently of food intake, though it worsens postprandially. The nausea has improved somewhat but was previously daily. The pain is described as cramping and occasionally severe, sometimes alleviated by bowel movements. She has identified dairy as a trigger and avoids it, but otherwise has difficulty pinpointing specific foods. Frequency of diarrhea fluctuates, with bowel movements being generally loose and occasionally type 6-7 on the [place] Stool Scale. She reports no blood in stools but experiences occasional constipation. Jolynn also has a history of heartburn occurring a few times a week. She has lost approximately 10 pounds unintentionally since April. Alleviating attempts include use of Tums and Pepto for acid reflux (with partial relief), Zofran for nausea (improving), and dietary avoidance of triggers Patient denies: fever/chills, vomiting, appetite changes, regurgitation, dysphasia or melena/hematochezia. PCP has obtained labs-Normal LFTs, CBC and r/o h. Pylori. CT ab/pelvis also ordered but delay in appt due to order type. Social History - Diet: Avoids dairy, tries to eat healthy (e.g., salads, burgers). - Alcohol Use: Rarely, about once a month, 1-2 drinks (liquor). 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 - family hx as below -denies personal hx of CA -denies significant cardiopulmonary history -tolerated anesthesia in the past without difficulty. [facility] Medical History (Updated 08/01/24 @ 14:32 by Mellissa Aguilar CNP) Unintentional weight loss Abdominal pain Unintentional weight change Difficulty sleeping Visual snow syndrome Cerebellar tonsillar ectopia Hx of migraine headaches History of depression Surgical History No pertinent past surgical history Family History Maternal Grandmother History of breast cancer BRCA negative Mother Depression Father Diabetes Social History Housing: Apartment Alcohol intake: current Alcohol intake frequency: a few times a month Patient Tobacco Use Status: Never used Tobacco e-Cigarette/Vaping Use: Never Used Substance Use Type: Marijuana service: No Current occupational status: employed 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 Gender identity: Female Cognitive needs: No Hearing needs: No Vision needs: No Female Reproductive History Menstrual Age of Menarche: 9 Review of Systems Const Reports as per HPI ENT Reports as per HPI Card Reports as per HPI Resp Reports as per HPI GI Reports as per HPI Reports as per HPI Physical Exam Vital Signs: Last Vital Signs Pulse 99 08/01/24 09:43 BP 92/66 08/01/24 09:43 Pulse Ox 96 08/01/24 09:43 Oxygen Delivery Method Room Air 08/01/24 09:43 BMI result Body Mass Index 38.9 Const General: healthy appearing, no acute distress and well developed Nutritional Appearance: well nourished Orientation/consciousness: patient oriented x3 HEENT Head: Yes normal to inspection, Yes normocephalic and Yes atraumatic Face and sinus: Yes normal facial exam Eyes General: appearance normal, both eyes and all related structures Neck Neck: Yes normal visual inspection Resp Effort & Inspection: normal respiratory effort, able to speak in complete sentences, no tracheal deviation and symmetric chest movement Auscultation: clear to auscultation bilaterally Cardio Jugular venous distension: no JVD Rate: regular rate Rhythm: regular rhythm Heart sounds: S1 normal heart sound present, S2 normal heart sound present, no gallops and no murmurs GI Inspection: Yes normal to inspection, No distended, Yes obesity and Yes striae Palpation (GI): Soft to palpation, not firm, nontender and No hepatosplenomegaly present Auscultation: Hypoactive bowel sounds present Neuro General: patient oriented x3 Gait exam (Neuro): Normal gait present Psych Appearance: grossly normal Mental Status: mental status grossly normal Speech and movement: Normal speech and movement present Affect: normal affect Attitude: cooperative Thought process: Normal thought process present Thought content: Normal thought content present Insight: Good insight present (Psych) Judgement: Good judgement present (Psych) Assessment & Plan Assessment & Plan (1) Abdominal pain: Comment: 09/10/2020 EGD + COLO-esophagitis, gastritis, hiatal hernia Code(s): R10.9 - Unspecified abdominal pain Category: Medical Qualifiers: Abdominal location: epigastric Qualified Code(s): R10.13 - Epigastric pain Plan: Recurrent abdominal pain, diarrhea, constiption, history of inflammation. Consistent with IBS-M. Given presentation we will proceed with the below testing: Additional Tests: CT scan with oral contrast, repeat stool testing and colonoscopy at time of upper endoscopy Medications: Fiber supplement, Rx sent. Prescriptions for laxative tablets and Miralax sent to pharmacy; instructions for Gatorade purchase and clear liquid diet given. She would benefit from bulking of stools Patient education -keep food journal to help identify triggers -procedure preparation, including avoiding certain foods and ensuring clear liquid intake. -Advised on necessity for ride post-procedure due to sedation. Reinforced lifestyle modifications to promote regularity: -higher fiber diet, examples provided -adequate hydration with water -150 minutes of moderate intensity exercise per week (2) Unintentional weight loss: Code(s): R63.4 - Abnormal weight loss Category: Medical Plan: Likely related to current GI symptoms. Thorough workup initiated by PCP without abnormal findings. We will obtain chest x-ray to complete workup. -diet as tolerated (3) GERD (gastroesophageal reflux disease): Code(s): K21.9 - Gastro-esophageal reflux disease without esophagitis Category: Medical Qualifiers: Esophagitis presence: with esophagitis Esophagitis bleeding: without hemorrhage Qualified Code(s): K21.00 - Gastro-esophageal reflux disease with esophagitis, without bleeding Plan: Persistent heartburn and epigastric pain. Additional Tests: Repeat endoscopy, chest X-ray. Medications: Continue Tums PRN, consider starting Pepcid as needed. She has declined a prescription Education on GERD prevention : -Advised against heavy meals; encouraged small, frequent meals instead of large ones. - Instructed to remain upright for 2?3 hours after eating. - Advised to avoid late-night meals, spicy foods, caffeine, alcohol, known dietary triggers, and tight-fitting clothing. - Emphasis placed on gradual implementation of lifestyle changes to improve adherence and symptom control. Plan Follow-up in 6 weeks or sooner as needed Time: I spent a total of 50 minutes on the date of encounter which includes: Preparing to see the patient (reviewed previous documentation, test results and medical history) Performing a medically appropriate exam and/or evaluation Ordering medications, tests, and procedures Documenting clinical information in the health record Orders: Orders XR chest 2V Today R63.4 - Abnormal weight loss C Reactive Protein Today R10.9 - Unspecified abdominal pain Calprotectin, Fecal Today R19.5 - Other fecal abnormalities Basic Metabolic Panel Today Z01.812 - Encounter for preprocedural laboratory examination CT abdomen pelvis w IV con Today R10.9 - Unspecified abdominal pain, R11.0 - Nausea, R19.7 - Diarrhea, unspecified Medications: New bisacodyl Take four tablets once for 1 day per colonoscopy instructions 5 mg PO ONCE 1 day 4 tabs 0RF polyethylene glycol 3350 (Miralax) per colonoscopy prep instructions 238 grams PO ONCE 238 grams 0RF methylcellulose (laxative) (Citrucel) 500 mg PO DAILY 90 tabs 1RF Coding Level of Care Code New Pt New Pt Level 5 (46299) Patient Type New Diagnoses Epigastric pain R10.13 Abdominal location: epigastric Unintentional weight loss R63.4 Gastroesophageal reflux disease with esophagitis without hemorrhage K21.00 Esophagitis presence: with esophagitis Esophagitis bleeding: without hemorrhage
== END 2024-08-01 10:29 | disposition home or self-care (01) ==
LOC: HO.HGI 09:28
PROVIDERS: PCP Nurse Practitioner Family; Visit Provider Nurse Practitioner Family
DX: R10.13 Epigastric pain (principal); R63.4 Abnormal weight loss; K21.00 Gastro-esophageal reflux disease with esophagitis, without bleeding
CPT/HCPCS: 99204

== ENCOUNTER → 2024-08-01 10:57 | Outpatient (BNV) | payer OTHER, SELFPAY | PROVIDERS: PCP Nurse Practitioner Family; Visit Provider Radiology Diagnostic Radiology | DX: R63.4 Abnormal weight loss (principal) | CPT/HCPCS: 71046 ==

== ENCOUNTER 2024-08-07 13:42 | Outpatient (REF) | payer OTHER, SELFPAY ==
[2024-08-14 20:04] LABS: Calprotectin, Fecal <5 mcg/g
== END 2024-08-07 13:43 | disposition home or self-care (01) ==
LOC: HO.LNP 13:42
PROVIDERS: Visit Provider Nurse Practitioner Family
DX: G43.719 Chronic migraine without aura, intractable, without status migrainosus (principal); R19.5 Other fecal abnormalities
CPT/HCPCS: 64615; 83993; 99211; J0585

== ENCOUNTER 2024-08-07 14:16 | Outpatient (AMB) | payer OTHER, SELFPAY ==
--- NOTE | 2024-08-07 14:18 | A.OFFVIS_ITS ---
Vital Signs 08/07/24 14:19 Height 5 ft Weight 199 lb BMI 38.9 Intake Visit Reasons: 3mon botox follow-up Intake Note: Patient presents for botox injection. practice supplied Allergies amitriptyline [AMITRIPTYLINE] Adverse Reaction (Severe, Verified 08/07/24 14:22) SUICIDAL IDEATION, suicidal Medication List - Last Reconciled 08/07/24 by Emy Solorio MD bisacodyl 5 mg PO ONCE 1 day bupropion HCl XL 150 mg PO DAILY bupropion HCl XL 450 mg PO DAILY candesartan 16 mg PO DAILY 30 days clonidine HCl 0.1 mg PO BEDTIME etonogestrel (Nexplanon) subdermal loratadine 10 mg PO DAILY methylcellulose (laxative) (Citrucel) 500 mg PO DAILY onabotulinumtoxinA (Botox) 200 units IM ONCE 12 weeks ondansetron HCl 4 mg PO Q8H PRN 3 days polyethylene glycol 3350 (Miralax) 238 grams PO ONCE sumatriptan succinate 50 - 100 mg orally at onset of headache, may repeat in 2 hrs PRN; max 2 tabs per day or 4 tabs/week (may take with Ibuprofen) 30 days sumatriptan succinate 6 mg subcutaneously at onset of migraine, may reapt in 1 hr PRN; 30 days HPI Comments Details: ? 23y/o female comes for treatment of migraines with botox. ??? Most frequent reported adverse reactions following injection of botox for chronic migraine include neck pain (9%), headache(5%), eyelid ptosis(4%), migraine(4%), muscular weakness(4%), musculuskeletal stiffness(4%), bronchitis(3%), injection site pain (3%), musculoskeletal pain(3%), myalgia(3%), facial paresis(2%), HTN(2%) and muscle spasms(2%) were discussed in detail. ??? Botulinum toxin typeA 200units Lot no [id number] C4 exp 11/2026 was diluted with 4 cc of normal saline . ??? Muscles injected- ??? Frontalis 4 sites ??? Procerus 1 site ??? Chief Transfer And Pumphouse Operator- 2 sites ??? Temporalis- 8 sites ??? Occipitalis- 6 sites ??? Cervical paraspinals- 4 sites ??? Trapezius- 6 sites- 10 units each ??? 5 units each in 31 site ??? Total use- 185units ??? Discarded-15units [facility] Medical History Unintentional weight loss Abdominal pain Unintentional weight change Difficulty sleeping Visual snow syndrome Cerebellar tonsillar ectopia Hx of migraine headaches History of depression Surgical History No pertinent past surgical history Family History Maternal Grandmother History of breast cancer BRCA negative Mother Depression Father Diabetes Social History Housing: Apartment Alcohol intake: current Alcohol intake frequency: a few times a month Patient Tobacco Use Status: Never used Tobacco e-Cigarette/Vaping Use: Never Used Substance Use Type: Marijuana service: No Current occupational status: employed 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 Sexual orientation: Straight/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 Gender identity: Female Cognitive needs: No Hearing needs: No Vision needs: No Female Reproductive History Menstrual Age of Menarche: 9 Physical Exam Vital Signs: BMI result Body Mass Index 38.9 Const General: cooperative and no acute distress Orientation/consciousness: patient oriented x3 Resp Effort & Inspection: normal respiratory effort and able to speak in complete sentences Neuro General: patient oriented x3 Cranial nerves: Yes CN's II-XII intact bilaterally Cognition (Neuro): normal cognition Psych Appearance: grossly normal Mental Status: mental status grossly normal Speech and movement: Normal speech and movement present Affect: normal affect Attitude: cooperative Office Procedures Botulinum toxin Injection 98951 - Migraine Procedure code (CPT) selection complete Office Meds onabotulinumtoxinA 200 unit solution for injection Performing Provider: Emy Solorio MD Performing Location: [facility] [place] [facility] Administered by: Emy Solorio MD on 08/07/24 14:42 Dose Route Admin Location Dispensed Lot Number Expiration Date [facility] Ethical Hacker 185 unit subcut 200 units [id number] ALLERGAN/BOTOX Comments: see hpi Assessment & Plan Assessment & Plan (1) Chronic migraine without aura: Comment: Code(s): G43.709 - Chronic migraine without aura, not intractable, without status migrainosus Category: Medical Qualifiers: Status migrainosus presence: without status migrainosus Intractability: intractable Qualified Code(s): G43.719 - Chronic migraine without aura, intractable, without status migrainosus Plan Patient tolerated the procedure well. she will call with any side effects Orders: Orders AMB Botulinum toxin Injection Today G43.709 - Chronic migraine without aura, not intractable, without status migrainosus Medications: New onabotulinumtoxinA 200 units subcut ONCE 1 ea 0RF Migraine G43.709 - Chronic migraine without aura, not intractable, without status migrainosus Coding Level of Care Code Est Pt Level 1 (91254) Diagnoses Intractable chronic migraine without aura and without status migrainosus G43.719 Status migrainosus presence: without status migrainosus Intractability: intractable CPT Codes Botox Injection - Botox 3: 29655 - Migraine ([id number])
[2024-08-07 14:19] VITALS: BMI 38.9
== END 2024-08-07 14:37 | disposition home or self-care (01) ==
LOC: HO.HSMS 14:17
PROVIDERS: PCP Nurse Practitioner Family; Visit Provider Psychiatry & Neurology Neurology
DX: G43.719 Chronic migraine without aura, intractable, without status migrainosus (principal)
CPT/HCPCS: 64615

== ENCOUNTER 2024-08-22 08:14 | Outpatient (REF) | payer OTHER, SELFPAY ==
[2024-08-22 12:08] LABS: Bacterial Vaginosis PCR NEGATIVE (Negative); Candida Group PCR NOT DETECTED (Not Detect); Candida glab krusei PCR NOT DETECTED (Not Detect); Trichomonas vaginalis PCR NOT DETECTED (Not Detect)
[2024-08-22 12:37] LABS: CT PCR NOT DETECTED (Not Detect.); NG PCR NOT DETECTED (Not Detect.)
== END 2024-08-22 08:15 | disposition home or self-care (01) ==
LOC: HO.LAB 08:14
PROVIDERS: PCP Nurse Practitioner Family; Visit Provider Advanced Practice Midwife
DX: Z20.2 Contact with and (suspected) exposure to infections with a predominantly sexual mode of transmission (principal)
CPT/HCPCS: 81515; 87491; 87591

== ENCOUNTER 2024-08-22 08:14 | Outpatient (AMB) | payer OTHER, SELFPAY ==
--- NOTE | 2024-08-22 08:15 | MHC.OFFVIS ---
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 Regular menses with Nexplanon. Currently is sexually active. She denies vaginal itching or irritation. STI screening offered; she accepts, cultures not bloodwork. She tries to eat healthy and stays active with exercise. Denies family history of ovarian or colon cancer. FH breast cancer. Last pap smear 2023, negative. COUNT INCLUDES [facility] Medical History (Updated 08/22/24 @ 08:45 by Mamta Pace CNM) Unintentional weight loss Abdominal pain Unintentional weight change Difficulty sleeping Visual snow syndrome Cerebellar tonsillar ectopia Hx of migraine headaches History of depression Surgical History No pertinent past surgical history Family History Maternal Grandmother History of breast cancer BRCA negative Mother Depression Father Diabetes Social History Housing: Apartment Alcohol intake: current Alcohol intake frequency: a few times a month Patient Tobacco Use Status: Never used Tobacco e-Cigarette/Vaping Use: Never Used Substance Use Type: Marijuana service: No Current occupational status: employed 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 Sexual orientation: Straight/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 Gender identity: Female Cognitive needs: No Hearing needs: No Vision needs: No Female Reproductive History Menstrual Age of Menarche: 9 Duration of menses: 3-5 days Date of last menstrual period: 07/24/24 control method: implanted (Nexplanon 01/21) Total pregnancies: 0 Date of last pap smear: 04/26/23 (neg) Review of Systems Const All systems reviewed & are unremarkable except as noted in HPI and below Reports as per HPI Eyes Reports no additional complaints ENT Reports no additional complaints Card Reports no additional complaints Resp Reports no additional complaints GI Reports as per HPI and Reports no additional complaints Reports as per HPI Musc Reports no additional complaints Skin/Breast Reports as per HPI Neuro Reports no additional complaints Psych Reports no additional complaints Endo Reports no additional complaints Albino/Lymph Reports no additional complaints Aller/Immun Reports no additional complaints Physical Exam Vital Signs: Last Vital Signs BP 100/62 08/22/24 08:16 BMI result Body Mass Index 38.7 Const General: cooperative, healthy appearing, no acute distress, well developed and alert Orientation/consciousness: patient oriented x3 HEENT Head: Yes normal to inspection Eyes General: appearance normal, both eyes and all related structures Neck Neck: Yes normal visual inspection Thyroid: Thyroid normal Chest Chest palpation & inspection: normal inspection of the chest and other (no puckering, dimpling, peau de orange, retraction, discharge, masses) Breast/axilla inspection: normal inspection of the breasts Breast/axilla palpation: normal palpation of the breasts Resp Effort & Inspection: normal respiratory effort GI Inspection: Yes normal to inspection Palpation (GI): Soft to palpation Rectal Exam - Female: deferred General: Yes bladder normal to palpation External Female Exam: normal external appearance and normal appearance of the urethra Speculum Exam - Vagina: normal appearance of the vagina, normal palpation, normal vaginal discharge and vaginal bleeding (Brown small amount) Speculum Exam - Cervix: normal appearance of the cervix and normal palpation Bimanual exam- vagina & uterus: normal bimanual exam, normal palpation, uterine size normal, bladder normal to palpation, normal palpation and non-tender Bimanual Exam- Adnexa, other: no masses OB/external & speculum: vaginal bleeding (Brown small amount) Skin General skin exam: no rashes or lesions noted Rashes: no rashes Neuro General: patient oriented x3 Cognition (Neuro): normal cognition Extrem General: Yes normal to inspection Psych Attitude: cooperative Thought process: Normal thought process present Assessment & Plan Assessment & Plan (1) Encounter for well woman exam with routine gynecological exam: Code(s): Z01.419 - Encounter for gynecological examination (general) (routine) without abnormal findings Category: Medical Plan Discussed: Current recommendations for pap smears per ASCCP guidelines. Breast awareness and periodic breast exams. Maintain a healthy lifestyle including a well balanced diet and routine exercise. Patient verbalizes understanding and agrees to the plan of care. She was given opportunity to ask questions and all questions were answered to the best of my ability. RTO in one year for annual coffee plantation worker examination. This note is constructed using voice recognition software. While every effort has been made to ensure accuracy, fisher trammel net errors may have been included. Orders: Orders Bacterial Vaginosis Panel Today Z20.2 - Contact with and (suspected) exposure to infections with a predominantly sexual mode of transmission CT NG by PCR Vag/Cerv Today Z20.2 - Contact with and (suspected) exposure to infections with a predominantly sexual mode of transmission Coding Level of Care Code Est Pt Prev Care 18-39y(30283) Diagnoses Encounter for well woman exam with routine gynecological exam Z01.419
[2024-08-22 08:16] VITALS: BP 100/62; BMI 38.7
== END 2024-08-22 09:08 | disposition home or self-care (01) ==
LOC: HO.HWS 08:14
PROVIDERS: PCP Nurse Practitioner Family; Visit Provider Advanced Practice Midwife
DX: Z01.419 Encounter for gynecological examination (general) (routine) without abnormal findings (principal)
CPT/HCPCS: 99395; 99459

== ENCOUNTER 2024-08-22 08:43 | Outpatient (REF) | payer OTHER, SELFPAY | END 2024-08-22 08:44 | disposition home or self-care (01) | LOC: HO.LNP 08:43 | PROVIDERS: Visit Provider Advanced Practice Midwife | DX: Z13.89 Encounter for screening for other disorder (principal) ==

== ENCOUNTER 2024-08-30 11:29 | Outpatient (REF) | payer OTHER, SELFPAY ==
--- NOTE | ~2024-08-30 | CT_ITS ---
EXAMINATION: CT ABDOMEN AND PELVIS WITH CONTRAST CLINICAL INFORMATION: Unspecified abdominal pain. Chronic nausea and cramping. Hiatal hernia. Heavy periods COMPARISON: None available. TECHNIQUE: Multidetector volumetric images were obtained from the superior aspect of the liver through the pubic symphysis following administration 85 mL of Omnipaque 350 intravenous contrast. Sagittal and coronal reformatted images were obtained on the technologist's workstation. Oral contrast: Yes This CT examination was performed using dose optimization techniques as appropriate, variously including the following: *Automated exposure control *Adjustment of mA and/or kV according to patient size (this includes techniques or standardized protocols for targeted exams where dose is matched to indication/reason for exam; i.e. extremities or head) *Use of iterative reconstruction technique DLP: 614 mGy centimeter. FINDINGS: LUNG BASES: No acute airspace disease. LIVER, GALLBLADDER, AND BILIARY TREE: Liver measures 15 cm no focal mass. 8 mm hypodensity in the dome left hepatic lobe. Main portal veins and hepatic veins and intrahepatic portion of the IVC are patent. No pericholecystic fluid collection or gallbladder wall thickening. Common bile duct measures 4 mm. PANCREAS: No focal lesion. No peripancreatic fluid collection. No main pancreatic ductal dilatation. SPLEEN: 11 cm. No focal lesion. ADRENAL GLANDS: No nodular lesion. KIDNEYS AND URETERS: No hydronephrosis. No nephrolithiasis. No enhancing renal mass. Normal enhancement pattern of the renal parenchyma. BLADDER: Fluid-filled. GASTROINTESTINAL TRACT: No intestinal obstruction pattern. No intestinal wall thickening. Abundant stool, rectosigmoid colon. Terminal ileum is normal. Appendix is normal. No pneumatosis intestinalis. No pneumoperitoneum. No ascites. No peripheral enhancing fluid collection, peritoneal cavity Small hiatal hernia. ABDOMINAL WALL: No umbilical hernia. LYMPH NODES: Mildly prominent mesenteric lymph nodes. VASCULAR: No aneurysm or dissection, abdominal aorta. PELVIC VISCERA: No gross masses. OSSEOUS STRUCTURES: No acute fracture or listhesis. Spina bifida occulta S1, congenital. No acute fracture or dislocation in the hips. CT/CT abdomen pelvis w IV con IMPRESSION: Small hiatal hernia. Fleischner guidelines were followed. Electronically signed by: Cirilo Blankenship MD 08/30/2024 01:59 PM EDT
[2024-08-30] MEDS: iohexoL 350 MG/ML 100 ML INFUS..BTL IV (13:48)
[2024-08-30] MEDS: Barium Sulfate Oral (Vanilla) 450 ML ORAL.SUSP 900 ML PO (13:49)
== END 2024-08-30 11:30 | disposition home or self-care (01) ==
LOC: HO.CT 11:29
PROVIDERS: PCP Nurse Practitioner Family; Visit Provider Nurse Practitioner Family
DX: R10.9 Unspecified abdominal pain (principal); R11.0 Nausea; R19.7 Diarrhea, unspecified
CPT/HCPCS: 74177; Q9967

== ENCOUNTER → 2024-08-30 11:30 | Outpatient (BNV) | payer OTHER, SELFPAY | PROVIDERS: PCP Nurse Practitioner Family; Visit Provider Radiology Diagnostic Radiology | DX: K44.9 Diaphragmatic hernia without obstruction or gangrene (principal) | CPT/HCPCS: 74177 ==

== ENCOUNTER 2024-09-07 14:44 | Outpatient (AMB) | payer OTHER, SELFPAY ==
--- NOTE | 2024-09-07 14:56 | MHC.OFFVIS ---
Vital Signs 09/07/24 14:57 Height 5 ft Weight 198 lb BMI 38.7 BP 106/66 Blood Pressure Location Lt brachial Position Sitting Pulse 92 Pulse Oximetry (%) 98 Oxygen Delivery Method Room Air Intake Visit Reasons: 6wk f/u- abd pain, diarrhea Intake Note: Patient follow up for abdominal pain,lab/fecal, chest X-Ray and CT scan results. Patient cc: Abdominal pain with cramps, diarrhea on and off. Denies any other GI issues. Contact Center Consultant Required: No Accompanied by: Self / Same As Patient Allergies amitriptyline (AMITRIPTYLINE) Adverse Reaction (Severe, Verified 09/07/24 14:55) SUICIDAL IDEATION, suicidal HPI HPI 6wk f/u- abd pain, diarrhea: Details: Patient is a 23-year-old female with PMH of GERD, MDD, migraines, obesity and vitamin-B 12 deficiency. Jolynn presents for follow-up after recent lab work and CAT scan. She reports reflux symptoms most days of the week, which have improved since our last visit by waiting 2 hours after eating. She occasionally uses Tums for symptom relief. Jolynn describes her bowel movements as formed stools with occasional diarrhea based on her food intake. She continues to experience abdominal pain, sometimes associated with bowel movements, but not always. The patient reports adhering to a low-fat diet as previously recommended. She has been walking for exercise but has not been taking the prescribed fiber tablet due to pharmacy availability issues. She denies nausea/vomiting or blood in stools. [facility] Medical History (Updated 08/22/24 @ 08:45 by Mamta Pace CNM) Unintentional weight loss Abdominal pain Unintentional weight change Difficulty sleeping Visual snow syndrome Cerebellar tonsillar ectopia Hx of migraine headaches History of depression Surgical History No pertinent past surgical history Family History Maternal Grandmother History of breast cancer BRCA negative Mother Depression Father Diabetes Social History Housing: Apartment Alcohol intake: current Alcohol intake frequency: a few times a month Patient Tobacco Use Status: Never used Tobacco e-Cigarette/Vaping Use: Never Used Substance Use Type: Marijuana service: No Current occupational status: employed 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 Sexual 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: Straight/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 Gender identity: Female Cognitive needs: No Hearing needs: No Vision needs: No Female Reproductive History Menstrual Age of Menarche: 9 Review of Systems Const Reports as per HPI ENT Reports as per HPI Card Reports as per HPI Resp Reports as per HPI GI Reports as per HPI Reports as per HPI Physical Exam Vital Signs: Last Vital Signs Pulse 92 09/07/24 14:57 BP 106/66 09/07/24 14:57 Pulse Ox 98 09/07/24 14:57 Oxygen Delivery Method Room Air 09/07/24 14:57 BMI result Body Mass Index 38.7 Const General: healthy appearing, no acute distress and well developed Nutritional Appearance: well nourished Orientation/consciousness: patient oriented x3 HEENT Head: Yes normal to inspection, Yes normocephalic and Yes atraumatic Face and sinus: Yes normal facial exam Eyes General: appearance normal, both eyes and all related structures Neck Neck: Yes normal visual inspection Resp Effort & Inspection: normal respiratory effort, able to speak in complete sentences, no tracheal deviation and symmetric chest movement Auscultation: clear to auscultation bilaterally Cardio Jugular venous distension: no JVD Rate: regular rate Rhythm: regular rhythm Heart sounds: S1 normal heart sound present, S2 normal heart sound present, no gallops and no murmurs GI Inspection: Yes normal to inspection, No distended and Yes obesity Palpation (GI): Soft to palpation, not firm, nontender and No hepatosplenomegaly present Auscultation: normal bowel sounds Neuro General: patient oriented x3 Gait exam (Neuro): Normal gait present Psych Appearance: grossly normal Mental Status: mental status grossly normal Speech and movement: Normal speech and movement present Affect: normal affect Attitude: cooperative Thought process: Normal thought process present Thought content: Normal thought content present Insight: Good insight present (Psych) Judgement: Good judgement present (Psych) Results Reviewed Results Reviewed: Date of Service: 08/30/24 Procedure(s): CT abdomen pelvis w IV con Accession Number(s): [id number] cc: Yolande Silva-ASHISH; Mellissa Aguilar CNP~ Report Number: [id number]: Total DLP = 614.00 mGy-cm EXAMINATION: CT ABDOMEN AND PELVIS WITH CONTRAST CLINICAL INFORMATION: Unspecified abdominal pain. Chronic nausea and cramping. Hiatal hernia. Heavy periods COMPARISON: None available. TECHNIQUE: Multidetector volumetric images were obtained from the superior aspect of the liver through the pubic symphysis following administration 85 mL of Omnipaque 350 intravenous contrast. Sagittal and coronal reformatted images were obtained on the technologist's workstation. Oral contrast: Yes This CT examination was performed using dose optimization techniques as appropriate, variously including the following: *Automated exposure control *Adjustment of mA and/or kV according to patient size (this includes techniques or standardized protocols for targeted exams where dose is matched to indication/reason for exam; i.e. extremities or head) *Use of iterative reconstruction technique DLP: 614 mGy centimeter. FINDINGS: LUNG BASES: No acute airspace disease. LIVER, GALLBLADDER, AND BILIARY TREE: Liver measures 15 cm no focal mass. 8 mm hypodensity in the dome left hepatic lobe. Main portal veins and hepatic veins and intrahepatic portion of the IVC are patent. No pericholecystic fluid collection or gallbladder wall thickening. Common bile duct measures 4 mm. PANCREAS: No focal lesion. No peripancreatic fluid collection. No main pancreatic ductal dilatation. SPLEEN: 11 cm. No focal lesion. ADRENAL GLANDS: No nodular lesion. KIDNEYS AND URETERS: No hydronephrosis. No nephrolithiasis. No enhancing renal mass. Normal enhancement pattern of the renal parenchyma. BLADDER: Fluid-filled. GASTROINTESTINAL TRACT: No intestinal obstruction pattern. No intestinal wall thickening. Abundant stool, rectosigmoid colon. Terminal ileum is normal. Appendix is normal. No pneumatosis intestinalis. No pneumoperitoneum. No ascites. No peripheral enhancing fluid collection, peritoneal cavity Small hiatal hernia. ABDOMINAL WALL: No umbilical hernia. LYMPH NODES: Mildly prominent mesenteric lymph nodes. VASCULAR: No aneurysm or dissection, abdominal aorta. PELVIC VISCERA: No gross masses. OSSEOUS STRUCTURES: No acute fracture or listhesis. Spina bifida occulta S1, congenital. No acute fracture or dislocation in the hips. CT/CT abdomen pelvis w IV con IMPRESSION: Small hiatal hernia. Fleischner guidelines were followed. Assessment & Plan Assessment & Plan (1) Abdominal pain: Comment: 09/10/2020 EGD + COLO-esophagitis, gastritis, hiatal hernia Code(s): R10.9 - Unspecified abdominal pain Category: Medical Qualifiers: Abdominal location: epigastric Qualified Code(s): R10.13 - Epigastric pain Plan: 08/01/24 Lab work showed mostly normal results with a slightly elevated CRP, non-specfic. CT scan revealed no colonic inflammation but significant stool burden, primarily in the distal colon. Stool testing for inflammatory bowel disease was negative. Symptoms may be consistent with constipation with overflow diarrhea. - Continue low-fat diet - Recommend avoiding gas-producing and diarrhea-inducing foods. LOWFAD handout provided - Proceed with scheduled upper endoscopy and colonoscopy for further evaluation Medications: -Start [id number] fiber supplement (prescription resent to pharmacy) -prescriptions for laxative tablets and MiraLax sent to pharmacy; instructions for Gatorade purchase and clear liquid diet given. Patient educated on scheduling process, procedure preparation, including avoiding certain foods and ensuring clear liquid intake Advised on necessity for ride post-procedure due to sedation. (2) GERD (gastroesophageal reflux disease): Code(s): K21.9 - Gastro-esophageal reflux disease without esophagitis Category: Medical Qualifiers: Esophagitis presence: with esophagitis Esophagitis bleeding: without hemorrhage Qualified Code(s): K21.00 - Gastro-esophageal reflux disease with esophagitis, without bleeding Plan: Improvement with lifestyle modifications 08/30/24 CT scan incidentally revealed a small hiatal hernia, which may contribute to reflux symptoms. H. pylori testing was negative. Plan: - Start omeprazole 20 mg daily - Consider surgical consult if endoscopy and colonoscopy do not provide answers (noted as severe surgery, so will wait) Encouraged to take omeprazole as prescribed, taken at least 30-60 minutes before a meal. Education on GERD prevention : -Advised against heavy meals; encouraged small, frequent meals instead of large ones. - Instructed to remain upright for 2?3 hours after eating. - Advised to avoid late-night meals, spicy foods, caffeine, alcohol, known dietary triggers, and tight-fitting clothing. - Emphasis placed on gradual implementation of lifestyle changes to improve adherence and symptom control. Plan Follow-up after endoscopy or sooner as needed Time: I spent a total of 20 minutes on the date of encounter which includes: Preparing to see the patient (reviewed previous documentation, test results and medical history) Performing a medically appropriate exam and/or evaluation Ordering medications, tests, and procedures Documenting clinical information in the health record Medications: New omeprazole Take one tablet daily. Best taken on an empty, 30 minutes before eating. 20 mg PO DAILY 90 caps 1RF Refilled methylcellulose (laxative) (Citrucel) 500 mg PO DAILY 90 tabs 1RF Coding Level of Care Code Established Pt Est Pt Level 3 (89814) Patient Type Established Diagnoses Epigastric pain R10.13 Abdominal location: epigastric Gastroesophageal reflux disease with esophagitis without hemorrhage K21.00 Esophagitis presence: with esophagitis Esophagitis bleeding: without hemorrhage
[2024-09-07 14:57] VITALS: BP 106/66; PULSE 92; O2SAT 98; BMI 38.7
== END 2024-09-07 15:21 | disposition home or self-care (01) ==
LOC: HO.HGI 14:45
PROVIDERS: PCP Nurse Practitioner Family; Visit Provider Nurse Practitioner Family
DX: R10.13 Epigastric pain (principal); K21.00 Gastro-esophageal reflux disease with esophagitis, without bleeding
CPT/HCPCS: 99213

== ENCOUNTER 2024-12-04 07:41 | Outpatient (AMB) | payer OTHER, SELFPAY ==
--- NOTE | 2024-12-04 07:43 | MHC.OFFVIS ---
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 Required: No Accompanied by: Self / Same As Patient Allergies amitriptyline (AMITRIPTYLINE) Adverse Reaction (Severe, Verified 12/04/24 07:43) SUICIDAL IDEATION, suicidal Medication List - Last Reconciled 12/04/24 by Emy Solorio MD bupropion HCl XL 150 mg PO DAILY bupropion HCl XL 450 mg PO DAILY candesartan 16 mg PO DAILY 90 days clonidine HCl 0.1 mg PO BEDTIME etonogestrel (Nexplanon) subdermal loratadine 10 mg PO DAILY omeprazole 20 mg PO DAILY onabotulinumtoxinA (Botox) 200 units IM ONCE 12 weeks ondansetron HCl 4 mg PO Q8H PRN 3 days sumatriptan succinate 6 mg subcutaneously at onset of migraine, may reapt in 1 hr PRN; 30 days HPI Comments Details: ? 23y/o female comes for treatment of migraines with botox. ??? Most frequent reported adverse reactions following injection of botox for chronic migraine include neck pain (9%), headache(5%), eyelid ptosis(4%), migraine(4%), muscular weakness(4%), musculuskeletal stiffness(4%), bronchitis(3%), injection site pain (3%), musculoskeletal pain(3%), myalgia(3%), facial paresis(2%), HTN(2%) and muscle spasms(2%) were discussed in detail. How many migraine days prior to botox How long do the migraines last Intensity of migraine ER visits related to migraine Effectiveness of botox from last?two?treatment(s) How many migraine days since receiving treatment: Change? in intensity of migraine? Change in frequency of migraine? Change in use of acute medication for migraine? Change in quality of life? ER visits related to migraine? Explanation for any gaps in treatment Have at least three months elapsed since last treatment (Last botox date - frequency of injections) If switching to dysport, xeomin, etc. - needs reason why switching to alternative ??? Botulinum toxin typeA 200units Lot no [id number] C4 exp 12/2026 was diluted with 4 cc of normal saline . ??? Muscles injected- ??? Frontalis 4 sites ??? Procerus 1 site ??? Surgical Coder- 2 sites ??? Temporalis- 8 sites ??? Occipitalis- 6 sites ??? Cervical paraspinals- 4 sites ??? Trapezius- 6 sites- 10 units each ??? 5 units each in 31 site ??? Total use- 185units ??? Discarded-15units [facility] Medical History Unintentional weight loss Abdominal pain Unintentional weight change Difficulty sleeping Visual snow syndrome Cerebellar tonsillar ectopia Hx of migraine headaches History of depression Surgical History No pertinent past surgical history Family History Maternal Grandmother History of breast cancer BRCA negative Mother Depression Father Diabetes Social History Housing: Apartment Alcohol intake: current Alcohol intake frequency: a few times a month Patient Tobacco Use Status: Never used Tobacco e-Cigarette/Vaping Use: Never Used Substance Use Type: Marijuana service: No Current occupational status: employed 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 Sexual orientation: Straight/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 Gender identity: Female Cognitive needs: No Hearing needs: No Vision needs: No Female Reproductive History Menstrual Age of Menarche: 9 Physical Exam Vital Signs: Last Vital Signs Pulse 83 12/04/24 07:46 BP 112/80 12/04/24 07:46 Pulse Ox 99 12/04/24 07:46 Oxygen Delivery Method Room Air 12/04/24 07:46 BMI result Body Mass Index 38.9 Const General: cooperative and no acute distress Orientation/consciousness: patient oriented x3 Resp Effort & Inspection: normal respiratory effort and able to speak in complete sentences Neuro General: patient oriented x3 Cranial nerves: Yes CN's II-XII intact bilaterally Cognition (Neuro): normal cognition Psych Appearance: grossly normal Mental Status: mental status grossly normal Speech and movement: Normal speech and movement present Affect: normal affect Attitude: cooperative Office Procedures Botulinum toxin Injection 68105 - Migraine Procedure code (CPT) selection complete Office Meds onabotulinumtoxinA 200 unit solution for injection Performing Provider: Emy Solorio MD Performing Location: [facility] [place] [facility] Administered by: Emy Solorio MD on 12/04/24 08:16 Dose Route Admin Location Dispensed Lot Number Expiration Date NDC [employer]e Former 185 unit IM 200 units [id number] ALLERGAN/BOTOX Total Dispensed Waste 200 units 7.5 % Comments: see hpi Assessment & Plan Assessment & Plan (1) Chronic migraine without aura: Comment: Code(s): G43.709 - Chronic migraine without aura, not intractable, without status migrainosus Category: Medical Qualifiers: Status migrainosus presence: without status migrainosus Intractability: intractable Qualified Code(s): G43.719 - Chronic migraine without aura, intractable, without status migrainosus Plan Patient tolerated the procedure well. she will call with any side effects Orders: Orders AMB Botulinum toxin Injection Today G43.109 - Migraine with aura, not intractable, without status migrainosus Coding Level of Care Code Est Pt Level 1 (64222) Diagnoses Intractable chronic migraine without aura and without status migrainosus G43.719 Status migrainosus presence: without status migrainosus Intractability: intractable CPT Codes Botox Injection - Botox 3: 28752 - Migraine ([id number])
[2024-12-04 07:46] VITALS: BP 112/80; PULSE 83; O2SAT 99; BMI 38.9
== END 2024-12-04 08:21 | disposition home or self-care (01) ==
LOC: HO.HSMS 07:42
PROVIDERS: PCP Nurse Practitioner Family; Visit Provider Psychiatry & Neurology Neurology
DX: G43.719 Chronic migraine without aura, intractable, without status migrainosus (principal)
CPT/HCPCS: 64615

== ENCOUNTER → 2024-12-04 07:41 | Outpatient (BNVA) | payer OTHER, SELFPAY | PROVIDERS: PCP Nurse Practitioner Family; Visit Provider Psychiatry & Neurology Neurology | DX: G43.719 Chronic migraine without aura, intractable, without status migrainosus (principal) | CPT/HCPCS: 64615; 99211; J0585 ==